=== PATIENT | female | born 1985 | race Caucasian/White ===

== ENCOUNTER 2016-08-26 12:51 | Emergency (ER) | payer MEDICAID, OTHER ==
[2016-08-26 13:11] VITALS: BP 126/81
--- NOTE | 2016-08-26 13:31 | EDM.PDOC ---
ED HPI GI/ABDOMINAL - General Chief Complaint: Abdominal Pain Stated Complaint: ABDOMINAL PAIN Time Seen by Provider: 08/26/16 13:30 Source of Information: Reports: Patient - History of Present Illness INITIAL COMMENTS - FREE TEXT/NARRATIVE: Patient here today with bilateral ear pain, drainage from left ear. She has had a cold for the past few weeks and now having worsening ear pain. She also has alcoholic cirrhosis and is having increased abdominal girth and would like this drained today. - Related Data Allergies/ADRs: Allergies Allergy/AdvReac Type Severity Reaction Status Date / Time No Known Allergies Allergy Verified 08/26/16 13:10 Home Meds: Home Meds Polyethylene Glycol 3350 [MiraLAX] 17 gm PO BID PRN 06/14/16 [History] Spironolactone [Aldactone] 25 mg PO DAILY 30 Days 06/15/16 [Rx] Amoxicillin 875 mg PO BID #20 tab 08/26/16 [Rx] Ciprofloxacin/Dexamethasone [Ciprodex Otic Susp] 7.5 ml EARLF BID #1 bottle 06/13 [Rx] Past Medical History - Past Health History Medical/Surgical History: Denies Medical/Surgical History HEENT History: Reports: Other (see below) Other HEENT History: Pt needs glasses but does not have them Gastrointestinal History: Reports: Cirrhosis, Jaundice Genitourinary History: Reports: UTI, recurrent [employer] History: Reports: , Therapeutic Psychiatric History: Reports: Addiction, Anxiety, Depression Endocrine/Metabolic History: Reports: Diabetes, type II - Past Surgical History GI Surgical History: Reports: Cholecystectomy Female Surgical History: Reports: D&C Musculoskeletal Surgical History: Reports: ORIF, Other (see below) Other Musculoskeletal Surgeries/Procedures:: Right Ankle Social & Family History - Family History Family Medical History: Noncontributory Endocrine/Metabolic: Reports: Diabetes, type II - Tobacco Use Smoking Status *Q: Current Every Day Smoker Years of Tobacco use: 17 Packs/Tins Daily: 0.2 Used Tobacco, but Quit: No Second Hand Smoke Exposure: No - Caffeine Use Caffeine Use: Reports: Soda - Alcohol Use Days Per Week of Alcohol Use: 7 Number of Drinks Per Day: 10 Total Drinks Per Week: 70 - Recreational Drug Use Recreational Drug Use: Yes Drug Use in Last 12 Months: Yes Recreational Drug Type: Reports: Methamphetamine Other Recreational Drug Type: used meth 06/28/16 Recreational Drug Use Frequency: Socially Recreational Drug Last Use: - Living Situation & Occupation Living situation: Reports: single, other (Currently homeless, staying with a friend) Occupation: unemployed ED ROS GENERAL - Review of Systems Review Of Systems: See Below Constitutional: Reports: no symptoms HEENT: Reports: Ear discharge (left), Ear pain, Rhinitis, Sinus problem. Denies : Throat pain Respiratory: Denies: Shortness of Breath, Wheezing, Cough Cardiovascular: Reports: No symptoms GI/Abdominal: Reports: Abdominal pain, Diarrhea (chronic), Other (increased girth, feeling of fullness). Denies: Constipation, Decreased appetite, Hematochezia, Melena, Nausea, Vomiting Musculoskeletal: Reports: no symptoms Skin: Denies: jaundice, pruritis, rash, change in color Neurological: Reports: No Symptoms Psychiatric: Reports: No symptoms ED EXAM, GI/ABD - Physical Exam Exam: See Below Exam Limited By: No limitations General Appearance: alert, WD/WN, no apparent distress Eyes: bilateral: normal appearance (No icterus.) Ears: normal external exam, other (Left canal with bloody, purulent discharge. Unalbe to visualize left TM. Right TM bright red and bulging. ) Throat/Mouth: Normal inspection, Normal oropharynx Respiratory/Chest: no respiratory distress, lungs clear, normal breath sounds Cardiovascular: normal peripheral pulses, regular rate, rhythm GI/Abdominal: normal bowel sounds, distention, other (Firm and distended significantly, ascites.) Neurological: alert, oriented Psychiatric: normal affect, normal mood Skin Exam: Warm, Dry, Intact. No: Jaundice Course - Vital Signs Last Recorded V/S: Last Vital Signs Temp 98.3 F 08/26/16 13:09 Pulse 120 H 08/26/16 13:09 Resp 18 08/26/16 13:09 BP 126/81 08/26/16 13:09 Pulse Ox 95 08/26/16 13:09 - Orders/Labs/Meds Meds: Medications Discontinued Medications Generic Name Dose Route Start Last Admin Trade Name Freq PRN Reason Stop Dose Admin Ibuprofen 400 mg 08/26/16 14:18 08/26/16 14:24 Motrin PO 08/26/16 14:19 400 mg ONETIME ONE Administration - Re-Assessments/Exams Free Text/Narrative Re-Assessment/Exam: Bilateral AOM with TM rupture on the left. Will treat with PO amoxicillin and ciprodex drops. Recommend ibuprofen as needed for the pain. Patient requesting paracentesis because she is "due". She is in no respiratory distress, able to take in full breath. Lungs clear bilaterally and O2 95-97% on room air and per record review this is her normal range. Discussed with Dr Abdul, this is not emergent and we will get her scheduled to have this on outpatient basis. Discussed with Dr Haq/surgery who agrees to see patient on Sunday at 2:30p. 08/26/16 14:15 Departure - Departure Time of Disposition: 14:18 Disposition: Home, Self-Care 01 Condition: good Clinical Impression: Recurrent AOM (acute otitis media) of both ears, Rupture of left tympanic membrane, Ascites due to alcoholic cirrhosis Prescriptions: Amoxicillin 875 mg PO BID #20 tab Ciprofloxacin/Dexamethasone [Ciprodex Otic Susp] 7.5 ml EARLF BID #1 bottle Instructions: Otitis Media, Adult, [id number], Cirrhosis, Ascites, Eardrum Perforation, [id number] Referrals: Debbie Dueñas, DO [Primary Care Provider] - Forms: ED Department Discharge Additional Instructions: Take full course of antibiotic, I recommend probiotic with this. Ear drops to left ear 2x daily for 7 days. Follow-up with Dr Haq at [facility] at 2:30pm for a waiting appointment for your ascites. Please be there 15 minutes early.
[2016-08-26] MEDS ORDERED: Ibuprofen 400 MG Tab PO ONE (14:18)
== END 2016-08-26 15:05 | disposition home or self-care (01) ==
LOC: JD.ED 12:51
DX: H66.93 Otitis media, unspecified, bilateral (principal); H72.92 Unspecified perforation of tympanic membrane, left ear; E11.9 Type 2 diabetes mellitus without complications; F17.210 Nicotine dependence, cigarettes, uncomplicated; Z79.899 Other long term (current) drug therapy
CPT/HCPCS: 99284; A9270; 99283

== ENCOUNTER 2016-08-28 11:55 | Emergency (ER) | payer MEDICAID, OTHER ==
[2016-08-28 12:27] VITALS: BP 120/90
== END 2016-08-28 12:45 | disposition other institution (70) ==
LOC: JD.ED 11:55
DX: Z53.21 Procedure and treatment not carried out due to patient leaving prior to being seen by health care provider (principal)

== ENCOUNTER 2016-08-31 17:26 | Emergency (ER) | payer MEDICAID, OTHER ==
[2016-08-31] MEDS ORDERED: LORazepam 2 MG/ML MDV IVPUSH ONE (17:50)
[2016-08-31] MEDS ORDERED: Sodium Chloride 0.9% 10 ML Syringe FLUSH PRN ×2 (17:51→18:54)
--- NOTE | 2016-08-31 18:45 | EDM.PDOC ---
ED HISTORY OF PRESENT ILLNESS - General Chief Complaint: Respiratory Problem Stated Complaint: Shortness of breath Time Seen by Provider: 08/31/16 17:35 Source of Information: Reports: Patient, Old records, RN notes reviewed History Limitations: Reports: No limitations - History of Present Illness INITIAL COMMENTS - FREE TEXT/NARRATIVE: 30 year old female presents to the ED today with shortness of breath and bilateral hand tingling. The symptoms started this afternoon. She is breathing rapidly and admits to feeling very anxious. She reports a non-productive cough. No fever or chills. She has a known history of alcohol cirrhosis requiring frequent paracentesis. Her last paracentesis was 3 days ago at [facility] with Dr. Haq. The patient says her abdomen feels large and she is concerned that the site may be infected. She admits to drinking whiskey today. She is unsure how much she drank. She says she's tried to quit in the past but it didn't work. History is difficult as patient is very anxious and appears to be intoxicated. - Related Data Allergies/ADRs: Allergies Allergy/AdvReac Type Severity Reaction Status Date / Time No Known Allergies Allergy Verified 08/28/16 12:21 Home Meds: Home Meds Polyethylene Glycol 3350 [MiraLAX] 17 gm PO BID PRN 06/14/16 [History] Spironolactone [Aldactone] 25 mg PO DAILY 30 Days 06/15/16 [Rx] Amoxicillin 875 mg PO BID #20 tab 08/26/16 [Rx] Ciprofloxacin/Dexamethasone [Ciprodex Otic Susp] 7.5 ml EARLF BID #1 bottle 06/13 [Rx] Past Medical History - Past Health History Medical/Surgical History: Denies Medical/Surgical History HEENT History: Reports: Other (see below) Other HEENT History: Pt needs glasses but does not have them Gastrointestinal History: Reports: Cirrhosis, Jaundice Genitourinary History: Reports: UTI, recurrent [employer] History: Reports: , Therapeutic Psychiatric History: Reports: Addiction, Anxiety, Depression Endocrine/Metabolic History: Reports: Diabetes, type II - Past Surgical History GI Surgical History: Reports: Cholecystectomy Female Surgical History: Reports: D&C Musculoskeletal Surgical History: Reports: ORIF, Other (see below) Other Musculoskeletal Surgeries/Procedures:: Right Ankle Social & Family History - Family History Family Medical History: Noncontributory Endocrine/Metabolic: Reports: Diabetes, type II - Tobacco Use Smoking Status *Q: Current Every Day Smoker Years of Tobacco use: 10 Packs/Tins Daily: 0.5 Used Tobacco, but Quit: No Second Hand Smoke Exposure: No - Caffeine Use Caffeine Use: Reports: Coffee, Energy drinks, Soda - Alcohol Use Days Per Week of Alcohol Use: 7 Number of Drinks Per Day: 10 Total Drinks Per Week: 70 - Recreational Drug Use Recreational Drug Use: No Drug Use in Last 12 Months: Yes Recreational Drug Type: Reports: Methamphetamine Other Recreational Drug Type: used meth 06/28/16 Recreational Drug Use Frequency: Socially Recreational Drug Last Use: - Living Situation & Occupation Living situation: Reports: single, other (Currently homeless, staying with a friend) Occupation: unemployed ED ROS GENERAL - Review of Systems Review Of Systems: See Below Constitutional: Reports: no symptoms. Denies: fever, chills, diaphoresis Respiratory: Reports: Shortness of Breath, Cough. Denies: Wheezing, Sputum GI/Abdominal: Reports: Abdominal pain, Nausea, Other (ascites). Denies: Diarrhea, Vomiting Neurological: Reports: Other (intoxication) Psychiatric: Reports: Anxiety ED EXAM, GENERAL - Physical Exam Exam: See Below Exam Limited By: No limitations General Appearance: alert, WD/WN, anxious, moderate distress Throat/Mouth: Normal inspection, Normal oropharynx Respiratory/Chest: lungs clear, normal breath sounds, no accessory muscle use, chest non-tender, other (tachypnic, oxygen saturation 100% on room air ). No: crackles, rales, rhonchi, wheezing, stridor Cardiovascular: normal peripheral pulses, no murmur, tachycardia GI/Abdominal: normal bowel sounds, soft, hepatomegaly, other (ascites). No: distended, guarding, rigid, rebound Neurological: alert, oriented, normal cognition Skin Exam: Warm, Dry, Intact Course - Vital Signs Last Recorded V/S: Last Vital Signs Temp 97.8 F 08/31/16 17:30 Pulse 147 H 08/31/16 17:30 Resp 24 H 08/31/16 17:30 BP 115/73 08/31/16 17:30 Pulse Ox 98 08/31/16 17:30 - Orders/Labs/Meds Orders: Active Orders 24 hr Category Date Time Status Cardiac Monitoring [RC] . DIRECTED Care 08/31/16 17:50 Active Peripheral IV Care [RC] . DIRECTED Care 08/31/16 17:51 Active Sodium Chloride 0.9% [Normal Saline] 100 ml Med 08/31/16 19:00 Active IV ASDIRECTED Sodium Chloride 0.9% [Saline Flush] Med 08/31/16 17:51 Active 10 ml FLUSH ASDIRECTED PRN Sodium Chloride 0.9% [Saline Flush] Med 08/31/16 18:54 Active 10 ml FLUSH ONETIME PRN Peripheral IV Insertion Adult [OM.PC] Stat Oth 08/31/16 17:51 Ordered Medication Orders Sodium Chloride (Normal Saline) 100 mls @ 65 mls/hr IV ASDIRECTED BALDO Last Admin: 08/31/16 18:57 Dose: 65 mls/hr Sodium Chloride (Saline Flush) 10 ml FLUSH ASDIRECTED PRN PRN Reason: Keep Vein Open Last Admin: 08/31/16 18:03 Dose: 10 ml Sodium Chloride (Saline Flush) 10 ml FLUSH ONETIME PRN PRN Reason: IV FLUSH Last Admin: 08/31/16 18:57 Dose: 10 ml Labs: Laboratory Tests 08/31/16 08/31/16 08/31/16 Range/Units 17:48 17:48 17:48 WBC 16.20 H (3.98-10.04) K/mm3 RBC 4.42 (3.98-5.22) M/mm3 Hgb 14.1 (11.2-15.7) gm/L Hct 41.5 (34.1-44.9) % MCV 93.9 (79.4-94.8) fl MCH 31.9 (25.6-32.2) pg MCHC 34.0 (32.2-35.5) g/dl RDW Std Deviation 60.9 H (36.4-46.3) fL Plt Count 417 H (182-369) K/mm3 MPV 8.7 L (9.4-12.3) fl Neut % (Auto) 73.0 H (34.0-71.1) % Lymph % (Auto) 18.5 L (19.3-51.7) % [place] % (Auto) 7.2 (4.7-12.5) % Eos % (Auto) 0.4 L (0.7-5.8) Baso % (Auto) 0.6 (0.1-1.2) % Neut # (Auto) 11.83 H (1.56-6.13) K/mm3 Lymph # (Auto) 2.99 (1.18-3.74) K/mm3 [place] # (Auto) 1.17 H (0.24-0.36) K/mm3 Eos # (Auto) 0.07 (0.04-0.36) K/mm3 Baso # (Auto) 0.09 H (0.01-0.08) K/mm3 D-Dimer, Quantitative 8.64 H (0.19-0.59) mg/L Sodium 136 (136-145) mEq/L Potassium 4.0 (3.5-5.1) mEq/L Chloride 100 (98-107) mEq/L Carbon Dioxide 26 (21-32) mEq/L Anion Gap 14.0 (5-15) BUN 7 (7-18) mg/dL Creatinine 0.8 (0.55-1.02) mg/dL Est Cr Clr Drug Dosing 83.51 mL/min Estimated GFR (MDRD) > 60 (>60) mL/min BUN/Creatinine Ratio 8.8 L (14-18) Glucose 113 H (74-106) mg/dL Calcium 7.4 L (8.5-10.1) mg/dL Total Bilirubin 1.2 H (0.2-1.0) mg/dL AST 355 H (15-37) U/L ALT 79 H (14-59) U/L Alkaline Phosphatase 571 H (46-116) U/L Total Protein 7.0 (6.4-8.2) g/dl Albumin 2.1 L (3.4-5.0) g/dl Globulin 4.9 gm/dL Albumin/Globulin Ratio 0.4 L (1-2) HCG, Qual (NEGATIVE) Ethyl Alcohol 0.18 (0.00) gm% 08/31/16 Range/Units 18:00 WBC (3.98-10.04) K/mm3 RBC (3.98-5.22) M/mm3 Hgb (11.2-15.7) gm/L Hct (34.1-44.9) % MCV (79.4-94.8) fl MCH (25.6-32.2) pg MCHC (32.2-35.5) g/dl RDW Std Deviation (36.4-46.3) fL Plt Count (182-369) K/mm3 MPV (9.4-12.3) fl Neut % (Auto) (34.0-71.1) % Lymph % (Auto) (19.3-51.7) % [place] % (Auto) (4.7-12.5) % Eos % (Auto) (0.7-5.8) Baso % (Auto) (0.1-1.2) % Neut # (Auto) (1.56-6.13) K/mm3 Lymph # (Auto) (1.18-3.74) K/mm3 [place] # (Auto) (0.24-0.36) K/mm3 Eos # (Auto) (0.04-0.36) K/mm3 Baso # (Auto) (0.01-0.08) K/mm3 D-Dimer, Quantitative (0.19-0.59) mg/L Sodium (136-145) mEq/L Potassium (3.5-5.1) mEq/L Chloride (98-107) mEq/L Carbon Dioxide (21-32) mEq/L Anion Gap (5-15) BUN (7-18) mg/dL Creatinine (0.55-1.02) mg/dL Est Cr Clr Drug Dosing mL/min Estimated GFR (MDRD) (>60) mL/min BUN/Creatinine Ratio (14-18) Glucose (74-106) mg/dL Calcium (8.5-10.1) mg/dL Total Bilirubin (0.2-1.0) mg/dL AST (15-37) U/L ALT (14-59) U/L Alkaline Phosphatase (46-116) U/L Total Protein (6.4-8.2) g/dl Albumin (3.4-5.0) g/dl Globulin gm/dL Albumin/Globulin Ratio (1-2) HCG, Qual Negative (NEGATIVE) Ethyl Alcohol (0.00) gm% Meds: Medications Generic Name Dose Route Start Last Admin Trade Name Freq PRN Reason Stop Dose Admin Sodium Chloride 100 mls @ 65 mls/hr 08/31/16 19:00 08/31/16 18:57 Normal Saline IV 65 mls/hr ASDIRECTED BALDO Administration Sodium Chloride 10 ml 08/31/16 17:51 08/31/16 18:03 Saline Flush FLUSH 10 ml ASDIRECTED PRN Administration Keep Vein Open Sodium Chloride 10 ml 08/31/16 18:54 08/31/16 18:57 Saline Flush FLUSH 10 ml ONETIME PRN Administration IV FLUSH Discontinued Medications Generic Name Dose Route Start Last Admin Trade Name Darron PRN Reason Stop Dose Admin Iopamidol 100 ml 08/31/16 18:54 08/31/16 18:57 Isovue-370 (76%) IVPUSH 08/31/16 18:55 100 ml ONETIME ONE Administration Lorazepam 1 mg 08/31/16 17:50 08/31/16 18:00 Ativan IVPUSH 08/31/16 17:51 1 mg ONETIME ONE Administration - Re-Assessments/Exams Free Text/Narrative Re-Assessment/Exam: Patient was very anxious and hyperventilating on arrival which explains her hand spasms. She was treated with 1mg IV Ativan. CBC reveals elevated WBC of 16,000. This could be related to her ear infection. However, cannot rule out intraabdominal infection. CMP reveals elevated liver enzymes and low albumin as expected. ETOH is 0.18. Hcg is negative. D-dimer is elevated at 8.6. CT angio of chest ordered as well as abdomen/pelvis. CTs read by Dr. Correa. Abdomen pelvis impression: 1. Diffuse abnormal enhancement of liver presumably from cirrhosis. Findings are stable from prior exam. 2. Ascites is seen which has slightly diminished from previous exam 3. Subcutaneous edema and subcutaneous fluid within the right side of the abdomen which has increased from prior exam. 4. No additinoal abnormality is appreciated. CT angio chest impression: 1. No findings of pulmonary embolism 2. No additional abnormality is appreciated The patient slept after receiving the Ativan. However her heart rate continues to be elevated in the 120-130s. Her BP is stable in the 110s systolic. I discussed her vitals, laboratory, and CT findings with ED Physician Dr. Abdul. He recommended discussing with Dr. Victoria Haq since she performed a paracentesis 3 days ago. I spoke to Dr. Haq. She recommended hospitalist consult due to elevated WBC and tachycardia. In the clinic 3 days ago, Dr. Haq reported that the patient had a heart rate in the 90s after her paracentesis. I discussed these recommendations with Dr. Abdul who agrees that the patient would benefit from an observation admission for IV fluids and monitoring. I discussed these recommendations and diagnostic findings with the patient. I recommended that we admit her to the hospital. The patient declines admission. I explained the risks, including worsening shortness of breath, tachycardia, possible intra-abdominal infection. She is on antibiotics for her ear infection which could explain her elevated WBC, however early sepsis cannot be ruled out. The patient states understanding. She continues to decline admission. We discussed her alcoholism and I encouraged her to seek treatment. She understands that she is continuing to harm herself and that her condition is guarded. I then discussed the patient's refusal to be admitted with Dr. Abdul. He recommends 500ml IV fluid bolus prior to discharge as her tachycardia could likely be related to intravascular volume depletion. Departure - Departure Time of Disposition: 20:31 Disposition: Home, Self-Care 01 Condition: fair Clinical Impression: Alcoholic hepatitis with ascites, Shortness of breath Alcohol intoxication Qualifiers: Complication of substance-induced condition: uncomplicated Qualified Code(s): F10.120 - Alcohol abuse with intoxication, uncomplicated Forms: ED Department Discharge Additional Instructions: Follow-up with Dr. Dueñas in 2-3 days for follow-up. See Dr. Haq or Dr. Kessler as needed for your ascites. Return to ER if your symptoms worsen We highly recommend that you stop drinking No driving today due to sedating medications given in the ED. - My Orders Last 24 Hours: My Active Orders 08/31/16 17:50 Cardiac Monitoring [RC] . DIRECTED 08/31/16 17:51 Peripheral IV Care [RC] . DIRECTED Sodium Chloride 0.9% [Saline Flush] 10 ml FLUSH ASDIRECTED PRN Peripheral IV Insertion Adult [OM.PC] Stat 08/31/16 18:54 Sodium Chloride 0.9% [Saline Flush] 10 ml FLUSH ONETIME PRN 08/31/16 19:00 Sodium Chloride 0.9% [Normal Saline] 100 ml IV ASDIRECTED - Assessment/Plan Last 24 Hours: My Active Orders 08/31/16 17:50 Cardiac Monitoring [RC] . DIRECTED 08/31/16 17:51 Peripheral IV Care [RC] . DIRECTED Sodium Chloride 0.9% [Saline Flush] 10 ml FLUSH ASDIRECTED PRN Peripheral IV Insertion Adult [OM.PC] Stat 08/31/16 18:54 Sodium Chloride 0.9% [Saline Flush] 10 ml FLUSH ONETIME PRN 08/31/16 19:00 Sodium Chloride 0.9% [Normal Saline] 100 ml IV ASDIRECTED
[2016-08-31] MEDS ORDERED: Iopamidol 755 Mg/ML 100 ML Bottle IVPUSH ONE (18:54)
[2016-08-31] MEDS ORDERED: Sodium Chloride 0.9% 100 ML IV SCH (19:00)
--- NOTE | 2016-08-31 19:38 | CT ---
CT abdomen and pelvis Technique: Multiple axial sections were obtained from above the dome of the diaphragm inferiorly through the pubic symphysis. Intravenous contrast was utilized. No oral contrast has been given. Lack of oral contrast diminishes evaluation of the bowel and processes around the bowel. Comparison: Previous CT exam of 06/13/16. Findings: Diffusely abnormal enhancement is seen within the liver. Spleen size is normal. Moderate ascites is seen which has mildly diminished from previous exam. Diffuse subcutaneous edema and fluid is seen within the right side of the abdomen which is more prominent than on previous exam. Adrenal glands show no nodule. Surgical clips are seen from prior cholecystectomy. Kidneys show contrast enhancement without hydronephrosis or mass. Pancreas appears within normal limits. Aorta shows no aneurysmal dilatation. No retroperitoneal adenopathy or mesenteric abnormalities are seen. No pelvic mass or adenopathy is seen. Delayed images shows contrast within the distal ureters and within the bladder. Bone window settings were reviewed which appears within normal limits for the patient's age. Impression: 1. Diffusely abnormal enhancement of the liver presumably from cirrhosis. Findings are stable from prior exam. 2. Ascites is seen which has slightly diminished from previous exam. 3. Subcutaneous edema and subcutaneous fluid within the right side of the abdomen which has increased from prior exam. 4. No additional abnormality is appreciated on CT study of the abdomen and pelvis. Study somewhat diminished in details due to lack of oral contrast. Diagnostic code #3
--- NOTE | 2016-08-31 19:38 | CT ---
CT chest Technique: Multiple axial sections through the chest were obtained. Study was performed as a CT pulmonary angiogram protocol. Comparison: No previous CT study is available. Findings: Pulmonary arteries are moderately well-opacified. No filling defects are seen to indicate pulmonary embolism. Mediastinum and hilar regions show no adenopathy or mass. No pericardial thickening is seen. No pleural effusions are seen. Lungs are clear. Bone window settings were reviewed which appear within normal limits for the patient's age. Impression: 1. No findings of pulmonary embolism. 2. No additional abnormality is appreciated on CT study of the chest. Diagnostic code #1
[2016-08-31] MEDS ORDERED: Sodium Chloride 0.9% 500 ML IV ONE (20:32)
[2016-08-31] MEDS ORDERED: Sodium Chloride 0.9% 500 ML ONE (20:36)
[2016-08-31] MEDS ORDERED: Sodium Chloride 0.9% 500 ML IV SCH (20:45)
[2016-08-31 21:21] VITALS: BP 122/68
== END 2016-08-31 21:21 | disposition home or self-care (01) ==
LOC: JD.ED 17:26
DX: K70.31 Alcoholic cirrhosis of liver with ascites (principal); B19.9 Unspecified viral hepatitis without hepatic coma; F10.229 Alcohol dependence with intoxication, unspecified; Y90.0 Blood alcohol level of less than 20 mg/100 ml; R06.4 Hyperventilation; R00.0 Tachycardia, unspecified; F41.9 Anxiety disorder, unspecified; H66.90 Otitis media, unspecified, unspecified ear; D72.829 Elevated white blood cell count, unspecified; F32.9 Major depressive disorder, single episode, unspecified; E11.9 Type 2 diabetes mellitus without complications; F17.200 Nicotine dependence, unspecified, uncomplicated; F15.90 Other stimulant use, unspecified, uncomplicated
CPT/HCPCS: 36415; 71275; 74177; 80053; 84703; 85025; 85379; 96374; 99285; G0480; J2060; J7030; J7040; J7050; Q9967; 51798; 99284

== ENCOUNTER 2016-09-01 15:22 | Emergency (ER) | payer MEDICAID, OTHER ==
[2016-09-01 15:32] VITALS: BP 111/70
[2016-09-01] MEDS ORDERED: Ondansetron 4 MG/2 ML SDV IVPUSH ONE (15:46)
[2016-09-01] MEDS ORDERED: Sodium Chloride 0.9% 10 ML Syringe FLUSH PRN (15:46)
[2016-09-01] MEDS ORDERED: HYDROmorphone 0.5 MG/0.5 ML Syringe IVPUSH ONE ×2 (15:49→18:28)
[2016-09-01] MEDS ORDERED: Sodium Chloride 0.9% 1,000 ML IV SCH (16:00)
--- NOTE | 2016-09-01 16:58 | EDM.PDOC ---
ED HPI GI/ABDOMINAL - General Chief Complaint: Abdominal Pain Stated Complaint: NOT BETTER SWOLLEN ABDOMEN AND SOB Time Seen by Provider: 09/01/16 15:36 Source of Information: Reports: Patient History Limitations: Reports: No limitations - History of Present Illness INITIAL COMMENTS - FREE TEXT/NARRATIVE: The patient presents with abdominal pain, abdominal distension, and shortness of breath. 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 She has ascities and she gets regular paracentesis. She last had paracentesis on the . She was here yesterday for the same symptoms and she had a complete work up to include CT of her chest that ruled out a PE, CT of her abdomen and pelvis that showed the ascities. Her WBC was elevated and she was offered admission but she refused. Her blood alcohol yesterday was 0.18. She has redness to the abdomen mostly on the right. She has left ear pain and an otitis media for which she is on antibiotics. She has chills but no fever here. She has no chest pain but she is short of breath. She is dizzy from the ear infection and she has fallen a few times. Timing/Duration: Reports: Week(s): Location: generalized Quality: Reports: other (sharp) Severity: moderate Context: Denies: sick contact, bad/questionable food, out of country travel, recent surgery, recent trauma, lifting, activity/exercise Associated Symptoms (-Female): Reports: fever/chills, nausea/vomiting. 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 Psychiatric History: Reports: Addiction, Anxiety, Depression Endocrine/Metabolic History: Reports: Diabetes, type II - Past Surgical History GI Surgical History: Reports: Cholecystectomy Female Surgical History: Reports: D&C Musculoskeletal Surgical History: Reports: ORIF, Other (see below) Other Musculoskeletal Surgeries/Procedures:: Right Ankle Social & Family History - Family History Family Medical History: Noncontributory Endocrine/Metabolic: Reports: Diabetes, type II - Tobacco Use Smoking Status *Q: Current Every Day Smoker Years of Tobacco use: 17 Packs/Tins Daily: 0.5 Used Tobacco, but Quit: No Second Hand Smoke Exposure: No - Caffeine Use Caffeine Use: Reports: Coffee, Energy drinks, Soda, Tea - Alcohol Use Days Per Week of Alcohol Use: 7 Number of Drinks Per Day: 10 Total Drinks Per Week: 70 - Recreational Drug Use Recreational Drug Use: Yes Drug Use in Last 12 Months: Yes Recreational Drug Type: Reports: Methamphetamine Other Recreational Drug Type: no drugs since Recreational Drug Use Frequency: Socially Recreational Drug Last Use: - Living Situation & Occupation Living situation: Reports: single, other (Currently homeless, staying with a friend) Occupation: unemployed ED ROS GENERAL - Review of Systems Review Of Systems: See Below Constitutional: Reports: chills. Denies: fever HEENT: Reports: No symptoms Respiratory: Reports: Shortness of Breath. Denies: Cough Cardiovascular: Reports: No symptoms Endocrine: Reports: no symptoms GI/Abdominal: Reports: Abdominal pain, Nausea : Reports: no symptoms Musculoskeletal: Reports: no symptoms Skin: Reports: no symptoms Neurological: Reports: No Symptoms ED EXAM, GI/ABD - Physical Exam Exam: See Below Exam Limited By: No limitations General Appearance: alert, no apparent distress Ears: normal external exam Nose: normal inspection Head: atraumatic, normocephalic Neck: normal inspection Respiratory/Chest: no respiratory distress, lungs clear, normal breath sounds Cardiovascular: no edema, no murmur, tachycardia GI/Abdominal: soft, distention, other (Erythema of the abdomen and pain upon palpation) Back Exam: normal inspection Extremities: other (ecchymosis and pain upon palpation to both hips) Course - Vital Signs Last Recorded V/S: Last Vital Signs Temp 98.6 F 09/01/16 15:31 Pulse 133 H 09/01/16 15:31 Resp 22 H 09/01/16 15:31 BP 111/70 09/01/16 15:31 Pulse Ox 99 09/01/16 15:31 - Orders/Labs/Meds Orders: Active Orders 24 hr Category Date Time Status Peripheral IV Care [RC] . DIRECTED Care 09/01/16 15:47 Active Head wo Cont [CT] Stat Exams 09/01/16 15:47 Taken Neck Soft Tissue [CR] Stat Exams 09/01/16 17:22 Taken CULTURE BLOOD [BC] Stat Lab 09/01/16 16:10 Received CULTURE BLOOD [BC] Stat Lab 09/01/16 16:24 Received Sodium Chloride 0.9% [Normal Saline] 1,000 ml Med 09/01/16 16:00 Active IV ASDIRECTED Sodium Chloride 0.9% [Normal Saline] 1,000 ml Med 09/01/16 18:20 Active IV ONETIME Sodium Chloride 0.9% [Normal Saline] 1,000 ml Med 09/01/16 18:26 Active IV ONETIME Sodium Chloride 0.9% [Saline Flush] Med 09/01/16 15:46 Active 10 ml FLUSH ASDIRECTED PRN Blood Culture x2 Reflex Set [OM.PC] Stat Oth 09/01/16 15:46 Ordered ED Antiemetic Medication Reflex [OM.PC] Stat Oth 09/01/16 15:46 Ordered Peripheral IV Insertion Adult [OM.PC] Stat Oth 09/01/16 15:46 Ordered Medication Orders Sodium Chloride (Normal Saline) 1,000 mls @ 125 mls/hr IV ASDIRECTED BALDO Last Admin: 09/01/16 15:57 Dose: 125 mls/hr Sodium Chloride (Normal Saline) 1,000 mls @ 1,000 mls/hr IV ONETIME ONE Stop: 09/01/16 19:19 Sodium Chloride (Normal Saline) 1,000 mls @ 1,000 mls/hr IV ONETIME ONE Stop: 09/01/16 19:25 Sodium Chloride (Saline Flush) 10 ml FLUSH ASDIRECTED PRN PRN Reason: Keep Vein Open Last Admin: 09/01/16 15:57 Dose: 10 ml Labs: Laboratory Tests 09/01/16 09/01/16 09/01/16 Range/Units 15:40 15:40 15:40 WBC 16.94 H (3.98-10.04) K/mm3 RBC 4.04 (3.98-5.22) M/mm3 Hgb 12.9 (11.2-15.7) gm/L Hct 38.2 (34.1-44.9) % MCV 94.6 (79.4-94.8) fl MCH 31.9 (25.6-32.2) pg MCHC 33.8 (32.2-35.5) g/dl RDW Std Deviation 61.5 H (36.4-46.3) fL Plt Count 385 H (182-369) K/mm3 MPV 9.0 L (9.4-12.3) fl Neut % (Auto) 75.4 H (34.0-71.1) % Lymph % (Auto) 15.6 L (19.3-51.7) % [place] % (Auto) 7.6 (4.7-12.5) % Eos % (Auto) 0.7 (0.7-5.8) Baso % (Auto) 0.5 (0.1-1.2) % Neut # (Auto) 12.76 H (1.56-6.13) K/mm3 Lymph # (Auto) 2.65 (1.18-3.74) K/mm3 [place] # (Auto) 1.28 H (0.24-0.36) K/mm3 Eos # (Auto) 0.12 (0.04-0.36) K/mm3 Baso # (Auto) 0.09 H (0.01-0.08) K/mm3 Sodium 136 (136-145) mEq/L Potassium 3.5 (3.5-5.1) mEq/L Chloride 99 (98-107) mEq/L Carbon Dioxide 27 (21-32) mEq/L Anion Gap 13.5 (5-15) BUN 9 (7-18) mg/dL Creatinine 1.0 (0.55-1.02) mg/dL Est Cr Clr Drug Dosing 63.88 mL/min Estimated GFR (MDRD) > 60 (>60) mL/min BUN/Creatinine Ratio 9.0 L (14-18) Glucose 147 H (74-106) mg/dL Lactic Acid (0.4-2.0) mmol/L Calcium 7.5 L (8.5-10.1) mg/dL Total Bilirubin 0.9 (0.2-1.0) mg/dL AST 290 H (15-37) U/L ALT 69 H (14-59) U/L Alkaline Phosphatase 598 H (46-116) U/L Total Protein 6.5 (6.4-8.2) g/dl Albumin 2.0 L (3.4-5.0) g/dl Globulin 4.5 gm/dL Albumin/Globulin Ratio 0.4 L (1-2) Lipase 574 H (73-393) U/L Urine Color (Yellow) Urine Appearance (Clear) Urine pH (5.0-8.0) Ur Specific [place] (1.005-1.030) Urine Protein (Negative) Urine Glucose (UA) (Negative) Urine Ketones (Negative) Urine Occult Blood (Negative) Urine Nitrite (Negative) Urine Bilirubin (Negative) Urine Urobilinogen (0.2-1.0) Ur Leukocyte Esterase (Negative) Urine RBC (0-5) /hpf Urine WBC (0-5) /hpf Ur Epithelial Cells (0-5) /hpf Urine Bacteria (FEW) /hpf Hyaline Casts (0-5) /lpf Urine Mucus (FEW) /hpf Ethyl Alcohol 0.21 (0.00) gm% 09/01/16 09/01/16 Range/Units 16:24 16:35 WBC (3.98-10.04) K/mm3 RBC (3.98-5.22) M/mm3 Hgb (11.2-15.7) gm/L Hct (34.1-44.9) % MCV (79.4-94.8) fl MCH (25.6-32.2) pg MCHC (32.2-35.5) g/dl RDW Std Deviation (36.4-46.3) fL Plt Count (182-369) K/mm3 MPV (9.4-12.3) fl Neut % (Auto) (34.0-71.1) % Lymph % (Auto) (19.3-51.7) % [place] % (Auto) (4.7-12.5) % Eos % (Auto) (0.7-5.8) Baso % (Auto) (0.1-1.2) % Neut # (Auto) (1.56-6.13) K/mm3 Lymph # (Auto) (1.18-3.74) K/mm3 [place] # (Auto) (0.24-0.36) K/mm3 Eos # (Auto) (0.04-0.36) K/mm3 Baso # (Auto) (0.01-0.08) K/mm3 Sodium (136-145) mEq/L Potassium (3.5-5.1) mEq/L Chloride (98-107) mEq/L Carbon Dioxide (21-32) mEq/L Anion Gap (5-15) BUN (7-18) mg/dL Creatinine (0.55-1.02) mg/dL Est Cr Clr Drug Dosing mL/min Estimated GFR (MDRD) (>60) mL/min BUN/Creatinine Ratio (14-18) Glucose (74-106) mg/dL Lactic Acid 2.7 H (0.4-2.0) mmol/L Calcium (8.5-10.1) mg/dL Total Bilirubin (0.2-1.0) mg/dL AST (15-37) U/L ALT (14-59) U/L Alkaline Phosphatase (46-116) U/L Total Protein (6.4-8.2) g/dl Albumin (3.4-5.0) g/dl Globulin gm/dL Albumin/Globulin Ratio (1-2) Lipase (73-393) U/L Urine Color Dark yellow (Yellow) Urine Appearance Slt cloudy H (Clear) Urine pH 6.0 (5.0-8.0) Ur Specific [place] 1.025 (1.005-1.030) Urine Protein 2+ H (Negative) Urine Glucose (UA) Negative (Negative) Urine Ketones 1+ H (Negative) Urine Occult Blood Negative (Negative) Urine Nitrite Negative (Negative) Urine Bilirubin 2+ H (Negative) Urine Urobilinogen 1.0 (0.2-1.0) Ur Leukocyte Esterase Negative (Negative) Urine RBC 0-5 (0-5) /hpf Urine WBC 0-5 (0-5) /hpf Ur Epithelial Cells 5-10 H (0-5) /hpf Urine Bacteria Few (FEW) /hpf Hyaline Casts 0-5 (0-5) /lpf Urine Mucus Moderate H (FEW) /hpf Ethyl Alcohol (0.00) gm% Meds: Medications Generic Name Dose Route Start Last Admin Trade Name Freq PRN Reason Stop Dose Admin Sodium Chloride 1,000 mls @ 125 mls/hr 09/01/16 16:00 09/01/16 15:57 Normal Saline IV 125 mls/hr ASDIRECTED BALDO Administration Sodium Chloride 1,000 mls @ 1,000 mls/hr 09/01/16 18:20 Normal Saline IV 09/01/16 19:19 ONETIME ONE Sodium Chloride 1,000 mls @ 1,000 mls/hr 09/01/16 18:26 Normal Saline IV 09/01/16 19:25 ONETIME ONE Sodium Chloride 10 ml 09/01/16 15:46 09/01/16 15:57 Saline Flush FLUSH 10 ml ASDIRECTED PRN Administration Keep Vein Open Discontinued Medications Generic Name Dose Route Start Last Admin Trade Name Freq PRN Reason Stop Dose Admin Hydromorphone HCl 0.5 mg 09/01/16 15:49 09/01/16 15:57 Dilaudid IVPUSH 09/01/16 15:50 0.5 mg ONETIME ONE Administration Hydromorphone HCl 0.5 mg 09/01/16 18:28 Dilaudid IVPUSH 09/01/16 18:29 ONETIME ONE Vancomycin HCl 1 gm/ Sodium 250 mls @ 250 mls/hr 09/01/16 17:23 09/01/16 17: 41 Chloride IV 09/01/16 18:22 250 mls/hr ONETIME ONE Administration Methylprednisolone Sodium Succinate 125 mg 09/01/16 18:10 09/01/16 18:23 Solu-Medrol IVPUSH 09/01/16 18:11 125 mg ONETIME ONE Administration Ondansetron HCl 4 mg 09/01/16 15:46 09/01/16 15:57 Zofran IVPUSH 09/01/16 15:47 4 mg ONETIME ONE Administration - Re-Assessments/Exams Free Text/Narrative Re-Assessment/Exam: 09/01/16 18:31 I ordered an IV NS at 125mL/hr, CT of her head, labs, blood cultures, and UA. Her WBC is elevated at 16.94. Her Hgb was elevated at 12.9. Her platelet count is normal. Her glucose is elevated at 147. Her creatinine is elevated at 1. Her lactic acid is elevated at 2.7. Her AST is elevated at 290. Her ALT is elevated at 69. Her alk phos is elevated at 598. Her lipase is 574. Her ETOH is elevated at 0.21. The CT of her head shows severe bilateral mastoiditis versus effusion with partial right otitis and interna. She had a hoarse voice for a few days and she says it is hard to breath in at times. She has an oxygen saturation of 100% . I did a soft tissue of her neck and she has steeple sign. She has croup. I ordered blood cultures and I started vancomycin 1gram IV for the cellulitis, mastoiditis and otitis media. She also has pancreatitis, sepsis, croup, ascitis , liver failure and ETOH intoxication. I ordered some solu-medrol 125mg IV for the croup and stridor. I also ordered a total of 2L of fluid. She had more pain so I ordered some dilaudid. I called our hospitalist about admitting her and he was not comfortable admitting her here. I called [facility] and talked with Dr Simon and she accepted the patient. She will be going by ambulance. Departure - Departure Time of Disposition: 18:40 Disposition: DC/Tfer to [facility] 02 Condition: serious Clinical Impression: Ascites due to alcoholic cirrhosis, Rupture of left tympanic membrane, Recurrent AOM (acute otitis media) of both ears, Shortness of breath, Alcoholism , Croup Sepsis Qualifiers: Sepsis type: sepsis due to unspecified organism Qualified Code(s): A41.9 - Sepsis, unspecified organism Abdominal pain Qualifiers: Abdominal location: generalized Qualified Code(s): R10.84 - Generalized abdominal pain Cellulitis Qualifiers: Site of cellulitis: trunk Site of cellulitis of trunk: abdominal wall Qualified Code(s): L03.311 - Cellulitis of abdominal wall Mastoiditis Qualifiers: Laterality: bilateral Qualified Code(s): H70.93 - Unspecified mastoiditis, bilateral Pancreatitis Qualifiers: Chronicity: acute Pancreatitis type: alcohol induced Acute pancreatitis complication: no infection or necrosis Qualified Code(s): K85.20 - Alcohol induced acute pancreatitis without necrosis or infection Alcohol intoxication Qualifiers: Complication of substance-induced condition: uncomplicated Qualified Code(s): F10.120 - Alcohol abuse with intoxication, uncomplicated Forms: ED Department Discharge - My Orders Last 24 Hours: My Active Orders 09/01/16 15:46 Sodium Chloride 0.9% [Saline Flush] 10 ml FLUSH ASDIRECTED PRN Blood Culture x2 Reflex Set [OM.PC] Stat ED Antiemetic Medication Reflex [OM.PC] Stat Peripheral IV Insertion Adult [OM.PC] Stat 09/01/16 15:47 Peripheral IV Care [RC] . DIRECTED Head wo Cont [CT] Stat 09/01/16 16:00 Sodium Chloride 0.9% [Normal Saline] 1,000 ml IV ASDIRECTED 09/01/16 16:10 CULTURE BLOOD [BC] Stat 09/01/16 16:24 CULTURE BLOOD [BC] Stat 09/01/16 17:22 Neck Soft Tissue [CR] Stat 09/01/16 18:20 Sodium Chloride 0.9% [Normal Saline] 1,000 ml IV ONETIME 09/01/16 18:26 Sodium Chloride 0.9% [Normal Saline] 1,000 ml IV ONETIME - Assessment/Plan Last 24 Hours: My Active Orders 09/01/16 15:46 Sodium Chloride 0.9% [Saline Flush] 10 ml FLUSH ASDIRECTED PRN Blood Culture x2 Reflex Set [OM.PC] Stat ED Antiemetic Medication Reflex [OM.PC] Stat Peripheral IV Insertion Adult [OM.PC] Stat 09/01/16 15:47 Peripheral IV Care [RC] . DIRECTED Head wo Cont [CT] Stat 09/01/16 16:00 Sodium Chloride 0.9% [Normal Saline] 1,000 ml IV ASDIRECTED 09/01/16 16:10 CULTURE BLOOD [BC] Stat 09/01/16 16:24 CULTURE BLOOD [BC] Stat 09/01/16 17:22 Neck Soft Tissue [CR] Stat 09/01/16 18:20 Sodium Chloride 0.9% [Normal Saline] 1,000 ml IV ONETIME 09/01/16 18:26 Sodium Chloride 0.9% [Normal Saline] 1,000 ml IV ONETIME
[2016-09-01] MEDS ORDERED: methylPREDNISolone Sodium Succinate 125 MG/2 ML SDV IVPUSH ONE (18:10)
[2016-09-01] MEDS ORDERED: Sodium Chloride 0.9% 1,000 ML IV ONE ×2 (18:20→18:26)
--- NOTE | 2016-09-03 16:21 | CT ---
Head CT Technique: Multiple axial sections through the brain were obtained. Intravenous contrast was not utilized. Comparison: No previous intracranial imaging. Findings: Ventricles along with basal cisterns and sulci over the convexities are within normal limits for the patient's age. No abnormal parenchymal densities are seen. No evidence of intracranial hemorrhage. No midline shift or mass effect is seen. Bone window settings were reviewed which show mucosal thickening and small air-fluid levels within both maxillary sinuses. Mucosal thickening also noted within the sphenoid and within portions of the ethmoid sinuses. Diffuse opacification noted of both mastoid sinuses. Right middle ear cavity shows mild mucosal thickening. No acute calvarial abnormality is seen. Impression: 1. Diffuse opacification of the mastoid sinuses which may represent mastoiditis. Sinus findings may also represent acute sinusitis. Possible mild right sided otitis media. 2. No acute intracranial abnormality is identified. Diagnostic code #3 Agree with preliminary report issued by [employer] (preliminary [employer] report dictated on 09/01/16, 6:08 PM Central Time)
--- NOTE | 2016-09-03 16:21 | CR ---
Soft tissue neck: Two views of the neck were obtained. Minimal steepling noted within the subglottic airway. Prevertebral soft tissues are normal. Bony structures are unremarkable. Epiglottis is normal. Impression: 1. Minimal steepling within the subglottic airway compatible with mild subglottic edema as seen in croup. 2. Soft tissue neck exam is otherwise unremarkable. Diagnostic code #3
== END 2016-09-01 19:00 ==
LOC: JD.ED 15:22
DX: A41.9 Sepsis, unspecified organism (principal); L03.311 Cellulitis of abdominal wall; H70.93 Unspecified mastoiditis, bilateral; K85.20 Alcohol induced acute pancreatitis without necrosis or infection; H66.93 Otitis media, unspecified, bilateral; F10.20 Alcohol dependence, uncomplicated; J05.0 Acute obstructive laryngitis [croup]; F10.120 Alcohol abuse with intoxication, uncomplicated; F17.210 Nicotine dependence, cigarettes, uncomplicated; E11.9 Type 2 diabetes mellitus without complications; Z87.440 Personal history of urinary (tract) infections; Z79.899 Other long term (current) drug therapy; Z90.89 Acquired absence of other organs; Z98.890 Other specified postprocedural states
CPT/HCPCS: 36415; 70360; 70450; 80053; 81001; 83605; 83690; 85025; 87040; 87086; 96361; 96365; 96375; 96376; 99285; G0480; J1170; J2405; J2930; J3370; J7040; J7050

== ENCOUNTER 2016-09-30 08:39 | Emergency (ER) | payer MEDICAID ==
[2016-09-30 09:07] VITALS: BP 135/102
--- NOTE | 2016-09-30 11:32 | EDM.PDOC ---
ED HPI GI/ABDOMINAL - General Chief Complaint: Abdominal Pain Stated Complaint: NEED FLUID DRAINED FROM ABDOMEN Time Seen by Provider: 09/30/16 09:30 Source of Information: Reports: Patient, RN notes reviewed - History of Present Illness INITIAL COMMENTS - FREE TEXT/NARRATIVE: 30-year-old female comes in with recurrent ascites. She does have history of chronic alcohol abuse and dependency. She states that she had been admitted at a [facility] not too long ago, had a lot of fluid taken off and then apparently was discharged to a [facility]. History is vague but what we understand is that she left the retirement house perhaps a week or so ago. She states that she is homeless living with friends right now. She admits that she is back to drinking alcohol again, drinking vodka. She does feel short of breath when lying flat. She feels pressure fullness of her upper abdomen. She also does feel a tightness into the upper mid chest. She states that she was on some type of prescription antacid medicine. She indicates that she does not have any of her prescription meds at this time, not sure how long she has not been taking previously prescribed medications. No current nausea or vomiting. Not coughing any more than usual. - Related Data Allergies/ADRs: Allergies Allergy/AdvReac Type Severity Reaction Status Date / Time No Known Allergies Allergy Verified 09/30/16 09:07 Home Meds: Home Meds Furosemide [Lasix] 40 mg PO DAILY 09/01/16 [History] Furosemide 80 mg PO DAILY 09/30/16 [History] Lactulose 30 mg PO BID 09/30/16 [History] Sertraline [Zoloft] 25 mg PO DAILY 09/30/16 [History] Spironolactone [Aldactone] 100 mg PO BID 09/30/16 [History] Past Medical History - Past Health History Medical/Surgical History: Denies Medical/Surgical History HEENT History: Reports: Other (see below) Other HEENT History: Pt needs glasses but does not have them Gastrointestinal History: Reports: Cirrhosis, Jaundice Genitourinary History: Reports: UTI, recurrent 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: , 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 Psychiatric History: Reports: Addiction, Anxiety, Depression Endocrine/Metabolic History: Reports: Diabetes, type II - Past Surgical History GI Surgical History: Reports: Cholecystectomy Female Surgical History: Reports: D&C Musculoskeletal Surgical History: Reports: ORIF, Other (see below) Other Musculoskeletal Surgeries/Procedures:: Right Ankle Social & Family History - Family History Family Medical History: Noncontributory Endocrine/Metabolic: Reports: Diabetes, type II - Tobacco Use Smoking Status *Q: Current Every Day Smoker Years of Tobacco use: 18 Packs/Tins Daily: 0.5 Used Tobacco, but Quit: No Second Hand Smoke Exposure: No - Caffeine Use Caffeine Use: Reports: Coffee, Soda, Tea - Alcohol Use Days Per Week of Alcohol Use: 7 Number of Drinks Per Day: 10 Total Drinks Per Week: 70 - Recreational Drug Use Recreational Drug Use: Yes Drug Use in Last 12 Months: Yes Recreational Drug Type: Reports: Methamphetamine Other Recreational Drug Type: no drugs since Recreational Drug Use Frequency: Socially Recreational Drug Last Use: - Living Situation & Occupation Living situation: Reports: single, other (Currently homeless, staying with a friend) Occupation: unemployed ED ROS GENERAL - Review of Systems Review Of Systems: See Below Constitutional: Denies: fever, chills HEENT: Reports: No symptoms Respiratory: Reports: Shortness of Breath (Especially when lying flat). Denies : Cough Cardiovascular: Reports: Chest pain (She does feel pressure over lower anterior chest) GI/Abdominal: Reports: Abdominal pain (She feels pressure discomfort of her upper abdomen). Denies: Nausea, Vomiting Musculoskeletal: Reports: no symptoms Skin: Reports: other (She has an abrasion of her left knee from previous fall) Neurological: Denies: Numbness, Tingling, Trouble Speaking, Difficulty Walking ED EXAM, GI/ABD - Physical Exam Exam: See Below General Appearance: alert, no apparent distress Throat/Mouth: Normal inspection, Normal oropharynx Head: atraumatic. No: facial swelling Neck: supple, full range of motion, other (No JVD) Respiratory/Chest: lungs clear, normal breath sounds, respiratory distress ( Mild tachypnea) Cardiovascular: tachycardia GI/Abdominal: tenderness, distention (Patient has quite marked and distention of her abdomen compatible with ascites, she does have a small fluid wave). No: guarding, rebound Back Exam: No: CVA tenderness (L), CVA tenderness (R) Extremities: other (She has superficial abrasion injury of the left knee) Neurological: alert, oriented, no motor/sensory deficits Skin Exam: Warm, Dry, Normal color Course - Vital Signs Last Recorded V/S: Last Vital Signs Temp 98.0 F 09/30/16 08:56 Pulse 129 H 09/30/16 08:56 Resp 22 H 09/30/16 08:56 BP 135/102 H 09/30/16 08:56 Pulse Ox 92 L 09/30/16 08:56 - Orders/Labs/Meds Labs: Laboratory Tests 09/30/16 09/30/16 Range/Units 09:50 09:50 WBC 15.59 H (3.98-10.04) K/mm3 RBC 4.15 (3.98-5.22) M/mm3 Hgb 13.2 (11.2-15.7) gm/L Hct 38.9 (34.1-44.9) % MCV 93.7 (79.4-94.8) fl MCH 31.8 (25.6-32.2) pg MCHC 33.9 (32.2-35.5) g/dl RDW Std Deviation 47.2 H (36.4-46.3) fL Plt Count 428 H (182-369) K/mm3 MPV 9.4 (9.4-12.3) fl Neut % (Auto) 74.6 H (34.0-71.1) % Lymph % (Auto) 16.1 L (19.3-51.7) % [place] % (Auto) 6.2 (4.7-12.5) % Eos % (Auto) 2.3 (0.7-5.8) Baso % (Auto) 0.7 (0.1-1.2) % Neut # (Auto) 11.62 H (1.56-6.13) K/mm3 Lymph # (Auto) 2.51 (1.18-3.74) K/mm3 [place] # (Auto) 0.97 H (0.24-0.36) K/mm3 Eos # (Auto) 0.36 (0.04-0.36) K/mm3 Baso # (Auto) 0.11 H (0.01-0.08) K/mm3 Sodium 140 (136-145) mEq/L Potassium 4.0 (3.5-5.1) mEq/L Chloride 104 (98-107) mEq/L Carbon Dioxide 25 (21-32) mEq/L Anion Gap 15.0 (5-15) BUN 7 (7-18) mg/dL Creatinine 0.6 (0.55-1.02) mg/dL Est Cr Clr Drug Dosing TNP Estimated GFR (MDRD) > 60 (>60) mL/min BUN/Creatinine Ratio 11.7 L (14-18) Glucose 101 (74-106) mg/dL Calcium 10.2 H (8.5-10.1) mg/dL Total Bilirubin 0.5 (0.2-1.0) mg/dL AST 62 H (15-37) U/L ALT 38 (14-59) U/L Alkaline Phosphatase 290 H (46-116) U/L Total Protein 7.1 (6.4-8.2) g/dl Albumin 2.6 L (3.4-5.0) g/dl Globulin 4.5 gm/dL Albumin/Globulin Ratio 0.6 L (1-2) Ethyl Alcohol 0.22 (0.00) gm% Meds: Medications Discontinued Medications Generic Name Dose Route Start Last Admin Trade Name Freq PRN Reason Stop Dose Admin Famotidine 20 mg 09/30/16 11:37 Pepcid PO 09/30/16 11:38 ONETIME ONE Ondansetron HCl 4 mg 09/30/16 11:37 Zofran Odt PO 09/30/16 11:38 ONETIME ONE - Re-Assessments/Exams Free Text/Narrative Re-Assessment/Exam: 09/30/16 11:15. Labs are back and are as documented. I have called Dr. Nelson Kessler, general surgeon manager relationship who has agreed to come in and do a paracentesis. When I went in to check on patient and let her know she was already visibly upset. She stated "I am having chest pain" and you have done nothing for that". I told her that we would get her some antacid medicine to help her with that and also informed her that Dr. Kessler was on his way in to do the paracentesis. Of note I had observed her a short time prior walking to her room from the bathroom in no apparent distress at all. I tried to explain to her that her chest pain is likely acid reflux. When I tried to educate her that she needs to be careful and aware that alcohol will make the acid reflux worse she got more upset. Made sure I new that she thought I was a "bad doctor" . I reminded her that Dr Kessler was on his way in to help her, that I had made arrangements for he to get that help. I was informed a short time later that she decided to leave, had signed out AMA. Departure - Departure Time of Disposition: 11:45 Disposition: Home, Self-Care 01 Clinical Impression: Ascites due to alcoholic cirrhosis Alcohol intoxication Qualifiers: Complication of substance-induced condition: uncomplicated Qualified Code(s): F10.920 - Alcohol use, unspecified with intoxication, uncomplicated Acid reflux Qualifiers: Esophagitis presence: esophagitis presence not specified Qualified Code(s): K21.9 - Gastro-esophageal reflux disease without esophagitis Referrals: Debbie Dueñas DO [Primary Care Provider] - Forms: ED Department Discharge
[2016-09-30] MEDS ORDERED: Ondansetron 4 MG Tab.DIS PO ONE (11:37)
[2016-09-30] MEDS ORDERED: Famotidine 20 MG Tab PO ONE (11:37)
== END 2016-09-30 11:40 | disposition home or self-care (01) ==
LOC: JD.ED 08:39
DX: K70.31 Alcoholic cirrhosis of liver with ascites (principal); F10.920 Alcohol use, unspecified with intoxication, uncomplicated; K21.9 Gastro-esophageal reflux disease without esophagitis; E11.9 Type 2 diabetes mellitus without complications; F41.9 Anxiety disorder, unspecified; F32.9 Major depressive disorder, single episode, unspecified; F17.210 Nicotine dependence, cigarettes, uncomplicated; Z79.899 Other long term (current) drug therapy; Z87.440 Personal history of urinary (tract) infections; Z90.49 Acquired absence of other specified parts of digestive tract
CPT/HCPCS: 36415; 80053; 85025; 99284; G0480; 99283

== ENCOUNTER 2016-10-03 05:12 | Emergency (ER) | payer MEDICAID, OTHER ==
[2016-10-03 05:26] VITALS: BP 117/85
[2016-10-03] MEDS ORDERED: Bupivacaine 0.5% 10 ML SDV INJECT ONE ×2 (05:57→07:22)
[2016-10-03] MEDS ORDERED: Sodium Chloride 0.9% 1,000 ML IV SCH (06:00)
--- NOTE | 2016-10-03 06:08 | EDM.PDOC ---
ED HPI GI/ABDOMINAL - General Chief Complaint: Abdominal Pain Stated Complaint: LIVER FAILURE Time Seen by Provider: 10/03/16 05:55 Source of Information: Reports: Patient History Limitations: Reports: No limitations - History of Present Illness INITIAL COMMENTS - FREE TEXT/NARRATIVE: 30-year-old female attends the ED to to increased shortness of breath and inability to lay down to sleep due to accumulation of ascites fluid in her abdomen. Patient has known cirrhosis of the liver from chronic alcohol abuse. She reports she has had paracentesis x18 in the past. At present she looks like she is 9 months . She reports she's unable to lie down for the last 3 nights to sleep. Diffuse abdominal discomfort. Last paracentesis was done approximately 2 weeks ago. Denies any fever or chills. She had been drinking alcohol last weekend which she feels did exacerbate the problem. Timing/Duration: Reports: Day(s):, Other (Chronic problem with cirrhosis of the liver and reaccumulation of ascites fluid.) Location: generalized Quality: Reports: ache, fullness Severity: moderate Improves with: Reports: other. Denies: defecating Worsens with: Reports: lying down, other (Can only take a very small quantity of food at a time) Context: Reports: other. Denies: sick contact, bad/questionable food ( as she feels early satiety.), out of country travel, recent surgery, recent trauma ( Cirrhosis of the liver) Associated Symptoms (-Female): Reports: back pain, loss of appetite, malaise, other (Dyspnea). 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 below) (None) - Related Data Allergies/ADRs: Allergies Allergy/AdvReac Type Severity Reaction Status Date / Time No Known Allergies Allergy Verified 10/03/16 05:23 Home Meds: Home Meds Furosemide [Lasix] 40 mg PO DAILY 09/01/16 [History] Furosemide 80 mg PO DAILY 09/30/16 [History] Lactulose 30 mg PO BID 09/30/16 [History] Sertraline [Zoloft] 25 mg PO DAILY 09/30/16 [History] Spironolactone [Aldactone] 100 mg PO BID 09/30/16 [History] Past Medical History - Past Health History Medical/Surgical History: Denies Medical/Surgical History HEENT History: Reports: Other (see below) Other HEENT History: Pt needs glasses but does not have them Respiratory History: Reports: Other (see below) Other Respiratory History: Thoracentesis Gastrointestinal History: Reports: Cirrhosis, Jaundice Genitourinary History: Reports: UTI, recurrent 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: , 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 Psychiatric History: Reports: Addiction, Anxiety, Depression Endocrine/Metabolic History: Reports: Diabetes, type II - Past Surgical History GI Surgical History: Reports: Cholecystectomy, Other (see below) Other GI Surgeries/Procedures: Paracentesis Female Surgical History: Reports: D&C Musculoskeletal Surgical History: Reports: ORIF, Other (see below) Other Musculoskeletal Surgeries/Procedures:: Right Ankle Social & Family History - Family History Family Medical History: Noncontributory Endocrine/Metabolic: Reports: Diabetes, type II - Tobacco Use Smoking Status *Q: Current Every Day Smoker Years of Tobacco use: 17 Packs/Tins Daily: 0.5 Used Tobacco, but Quit: No Second Hand Smoke Exposure: No - Caffeine Use Caffeine Use: Reports: Coffee, Soda, Tea - Alcohol Use Days Per Week of Alcohol Use: 7 Number of Drinks Per Day: 10 Total Drinks Per Week: 70 - Recreational Drug Use Recreational Drug Use: No Drug Use in Last 12 Months: Yes Recreational Drug Type: Reports: Methamphetamine Other Recreational Drug Type: no drugs since Apr. Recreational Drug Use Frequency: Socially Recreational Drug Last Use: - Living Situation & Occupation Living situation: Reports: single, other (Currently homeless, staying with a friend) Occupation: unemployed ED ROS GENERAL - Review of Systems Review Of Systems: See Below Constitutional: Reports: malaise, weakness, fatigue, weight gain (She estimates approximately 20 pound weight gain in the last 2 weeks.). Denies: fever, chills , weight loss HEENT: Reports: No symptoms Respiratory: Reports: Shortness of Breath. Denies: Wheezing, Pleuritic Chest Pain, Cough, Sputum, Hemoptysis Cardiovascular: Reports: Dyspnea on exertion. Denies: Blood pressure problem, Claudication, Edema, Lightheadedness, Orthopnea Endocrine: Reports: fatigue GI/Abdominal: Reports: Abdominal pain, Other (Stools tend to be a little but on the loose side but are still formed up.) : Reports: frequency (Due to being on diuretics. She does admit that sometimes she misses medications.) Musculoskeletal: Reports: no symptoms Skin: Reports: no symptoms Neurological: Reports: No Symptoms Psychiatric: Reports: Anxiety ED EXAM, GI/ABD - Physical Exam Exam: See Below Exam Limited By: No limitations General Appearance: alert, anxious, moderate distress Eyes: bilateral: normal appearance (No jaundice.) Throat/Mouth: Normal inspection, Normal lips, Normal oropharynx Head: atraumatic, normocephalic Neck: normal inspection, supple, non-tender, full range of motion. No: lymphadenopathy (L), lymphadenopathy (R) Respiratory/Chest: lungs clear, respiratory distress (Mild tachypnea at rest), decreased breath sounds (Decreased breath sounds to the lower 20% of lung hernandes.) Cardiovascular: normal peripheral pulses, no edema, no gallop, no murmur, no rub , tachycardia (Resting heart rate is 133 per minute.) GI/Abdominal: hypoactive bowel sounds, distention (Abdomen is grossly distended again looks like she is 9 months . It is very taut and firm to palpation. They'll to percussion throughout. Fluid wave is easily ascertained. admitted to superior) Back Exam: normal inspection, full range of motion. No: CVA tenderness (L), CVA tenderness (R) Extremities: normal inspection, normal range of motion, non-tender, no pedal edema, normal capillary refill Neurological: alert, oriented, CN II-XII intact, normal cognition, normal gait Psychiatric: normal affect, normal mood Skin Exam: Warm, Dry, Intact, Normal color, No rash Course - Vital Signs Last Recorded V/S: Last Vital Signs Temp 36.7 C 10/03/16 05:23 Pulse 133 H 10/03/16 05:23 Resp 14 10/03/16 05:23 BP 117/85 10/03/16 05:23 Pulse Ox 93 L 10/03/16 05:23 - Orders/Labs/Meds Orders: Active Orders 24 hr Category Date Time Status Sodium Chloride 0.9% [Normal Saline] 1,000 ml Med 10/03/16 06:00 Active IV ASDIRECTED Medication Orders Sodium Chloride (Normal Saline) 1,000 mls @ 100 mls/hr IV ASDIRECTED BALDO Labs: Laboratory Tests 10/03/16 10/03/16 10/03/16 Range/Units 06:04 06:04 06:04 WBC 13.11 H (3.98-10.04) K/mm3 RBC 3.85 L (3.98-5.22) M/mm3 Hgb 12.3 (11.2-15.7) gm/L Hct 36.8 (34.1-44.9) % MCV 95.6 H (79.4-94.8) fl MCH 31.9 (25.6-32.2) pg MCHC 33.4 (32.2-35.5) g/dl RDW Std Deviation 49.6 H (36.4-46.3) fL Plt Count 304 (182-369) K/mm3 MPV 9.1 L (9.4-12.3) fl Neutrophils % (Manual) 73 H (40-60) % Band Neutrophils % 0 (0-10) % Lymphocytes % (Manual) 22 (20-40) % Atypical Lymphs % 0 % Monocytes % (Manual) 3 (2-10) % Eosinophils % (Manual) 2 (0.7-5.8) % Basophils % (Manual) 0 L (0.1-1.2) Platelet Estimate Adequate RBC Morph Comment Normal PT 10.6 (8.0-13.0) SECONDS INR 0.97 Sodium 139 (136-145) mEq/L Potassium 3.7 (3.5-5.1) mEq/L Chloride 104 (98-107) mEq/L Carbon Dioxide 26 (21-32) mEq/L Anion Gap 12.7 (5-15) BUN 7 (7-18) mg/dL Creatinine 0.7 (0.55-1.02) mg/dL Est Cr Clr Drug Dosing TNP Estimated GFR (MDRD) > 60 (>60) mL/min BUN/Creatinine Ratio 10.0 L (14-18) Glucose 106 (74-106) mg/dL Calcium 9.0 (8.5-10.1) mg/dL Total Bilirubin 0.4 (0.2-1.0) mg/dL AST 50 H (15-37) U/L ALT 31 (14-59) U/L Alkaline Phosphatase 278 H (46-116) U/L Total Protein 6.3 L (6.4-8.2) g/dl Albumin 2.3 L (3.4-5.0) g/dl Globulin 4.0 gm/dL Albumin/Globulin Ratio 0.6 L (1-2) Meds: Medications Generic Name Dose Route Start Last Admin Trade Name Darron PRN Reason Stop Dose Admin Sodium Chloride 1,000 mls @ 100 mls/hr 10/03/16 06:00 Normal Saline IV ASDIRECTED BALDO Discontinued Medications Generic Name Dose Route Start Last Admin Trade Name Darron PRN Reason Stop Dose Admin Bupivacaine HCl 10 ml 10/03/16 05:57 10/03/16 07:23 Sensorcaine-Mpf 0.5% INJECT 10/03/16 05:58 10 ml ONETIME ONE Administration Bupivacaine HCl Confirm 10/03/16 06:55 10/03/16 07:23 Sensorcaine-Mpf 0.5% Administered 10/03/16 06:56 Not Given Dose 10 ml .ROUTE .STK-MED ONE Bupivacaine HCl 10 ml 10/03/16 07:22 10/03/16 07:23 Sensorcaine-Mpf 0.5% INJECT 10/03/16 07:23 10 ml ONETIME ONE Administration - Radiology Interpretation Free Text/Narrative:: 30-year-old female with known chronic cirrhosis of the liver from alcoholism and chronic ascites presents to the ED for for paracentesis. She is to have this done every 2-3 weeks on average 2 to accumulation of ascites fluid. For the last 3 days she's been unable to lie flat to sleep. She finds the operating room for food. She is short of breath on minimal exertion. She does report that she was drinking alcohol on the weekend and seemed to exacerbate the situation. She also is at times noncompliant with her diuretics. Examination confirms marked ascites with decreased air entry to both lung hernandes. Plan routine lab work including coags to be done. Patient will be prepped for paracentesis. - Re-Assessments/Exams Free Text/Narrative Re-Assessment/Exam: 10/03/16 07:00 labs revealed a white count of 13.11 with 73% neutrophils no bands hemoglobin is good at 12.3 hematocrit of 36.8. Platelets were 304,000. Coags were normal with a PT of 10.6 INR 0.97. Sodium 139 potassium 3.7 chloride 104 bicarbonate 26. Glucose 106 AST of 50 ALT 31 alkaline phosphatase 278. Therefore it was felt safe to proceed with paracentesis procedure. Sent for this procedure was signed. 10/03/16 07:30: Paracentesis done through the right lower quadrant of the abdomen. Use Marcaine 0.5% without epinephrine for anesthesia plus a little lidocaine 1%. Obtain 6.3 L of ricki-colored foamy fluid from the abdominal cavity. Patient achieved good relief of abdominal discomfort and ability to breathe freely. Discharged home to continue all current medications as previously prescribed. Followup with her normal care provider as planned. The puncture wound was closed with 2 4-0 Vicryl sutures that should followed on their own over the next 7-10 days. Departure - Departure Time of Disposition: 07:33 Disposition: Home, Self-Care 01 Condition: fair Clinical Impression: Cirrhosis of liver not due to alcohol Ascites Qualifiers: Ascites type: due to alcoholic hepatitis Qualified Code(s): K70.11 - Alcoholic hepatitis with ascites Instructions: Cirrhosis, Ascites Referrals: Debbie Dueñas DO [Primary Care Provider] - Forms: ED Department Discharge Additional Instructions: Evaluation in the emergency room today in regards to recurrence of severe ascites causing difficulty breathing and eating. Known chronic cirrhosis of the liver with recurrent need for paracentesis. Lab work done today revealed coags to be normal. Hemoglobin was 12.3 today. Sodium was 139 potassium was normal at 3.7. Paracentesis was performed in the right lower quadrant of the abdomen under local anesthetic and we obtained 6.3 L of ascites fluid. 2 diet Vicryl sutures were used to close the puncture wound in the right lower quadrant. These will soften with showering in August, when they become loose which is usually 7-10 days. At this time continue all current medications as previously prescribed. - My Orders Last 24 Hours: My Active Orders 10/03/16 06:00 Sodium Chloride 0.9% [Normal Saline] 1,000 ml IV ASDIRECTED - Assessment/Plan Last 24 Hours: My Active Orders 10/03/16 06:00 Sodium Chloride 0.9% [Normal Saline] 1,000 ml IV ASDIRECTED Paracentesis - Paracentesis Paracentesis Indication: ascites Location: RLQ Skin prep: CDC/MBT guidelines, sterile drapes, chlorhexidine Ultrasound guided: No Local anesthesia: other Local anesthesia volume: 10cc (Marcaine 0.5%) Number of Attempts: 2 Device Used: 8 Fr kit device Fluid: yellow Aspirated volume (mls): 6,300 Complications: No Dressing: other (To 4-0 Vicryl sutures used to close the puncture wound right lower quadrant and then topical Dermabond.)
[2016-10-03] MEDS ORDERED: Bupivacaine 0.5% 10 ML SDV ONE (06:55)
== END 2016-10-03 07:58 | disposition home or self-care (01) ==
LOC: JD.ED 05:12
DX: K70.11 Alcoholic hepatitis with ascites (principal); K74.60 Unspecified cirrhosis of liver; F41.8 Other specified anxiety disorders; F17.210 Nicotine dependence, cigarettes, uncomplicated; E11.9 Type 2 diabetes mellitus without complications; Z90.49 Acquired absence of other specified parts of digestive tract; Z98.890 Other specified postprocedural states; Z79.899 Other long term (current) drug therapy
CPT/HCPCS: 36415; 49082; 49084; 80053; 85025; 85610; 99284; 99284-25; C1729

== ENCOUNTER 2016-12-17 10:47 | Emergency (ER) | payer MEDICAID, OTHER, SELFPAY ==
[2016-12-17 11:04] VITALS: BP 139/99
[2016-12-17] MEDS ORDERED: Sodium Chloride 0.9% 10 ML Syringe FLUSH PRN (11:16)
[2016-12-17] MEDS ORDERED: Ondansetron 4 MG/2 ML SDV IVPUSH ONE (11:17)
--- NOTE | 2016-12-17 11:37 | EDM.PDOC ---
ED HPI GENERAL MEDICAL PROBLEM - General Chief Complaint: Abdominal Pain Stated Complaint: SOB/RAPID HEARTBEAT Time Seen by Provider: 12/17/16 10:56 Source of Information: Reports: Patient History Limitations: Reports: No Limitations - History of Present Illness INITIAL COMMENTS - FREE TEXT/NARRATIVE: The patient has a history of cirrhosis from alcohol abuse. She gets paricentesis every 2 to 3 weeks to remove fluid. She has increased abdominal girth and shortness of breath. She has abdominal pain. She was in [place] for awhile. She was admitted there a few months ago. She was sent for treatment and she was sober for awhile. She came back to [place] a few days ago and she started drinking again. She last drank earlier today. She has some nausea but no vomiting. Onset: Gradual Duration: Week(s): Location: Reports: Abdomen Quality: Reports: Sharp Severity: Moderate Improves with: Reports: None Worsens with: Reports: None Associated Symptoms: Reports: Nausea/Vomiting. Denies: Chest Pain, Cough, Fever /Chills, Shortness of Breath Abdominal Pain Score (Numeric/FACES): 10 - Related Data Allergies Allergy/AdvReac Type Severity Reaction Status Date / Time No Known Allergies Allergy Verified 12/17/16 10:56 Home Meds: Home Meds Furosemide [Lasix] 40 mg PO DAILY 09/01/16 [History] Furosemide 80 mg PO DAILY 09/30/16 [History] Lactulose 30 mg PO BID 09/30/16 [History] Sertraline [Zoloft] 25 mg PO DAILY 09/30/16 [History] Spironolactone [Aldactone] 100 mg PO BID 09/30/16 [History] Cetirizine [ZyrTEC] 5 mg PO DAILY 12/17/16 [History] Folic Acid 1 mg PO DAILY 12/17/16 [History] Gabapentin [Neurontin] 100 mg PO BID 12/17/16 [History] Ibuprofen 200 mg PO Q8HR PRN 12/17/16 [History] Multivitamin [Daily Mackenzie] 1 tab PO ACDINNER 12/17/16 [History] Nicotine [Nicotine Patch] 1 patch TOP DAILY 12/17/16 [History] Pantoprazole [ProTONIX] 40 mg PO DAILY 12/17/16 [History] Past Medical History - Past Health History Medical/Surgical History: Denies Medical/Surgical History HEENT History: Reports: Other (See Below) Other HEENT History: Pt needs glasses but does not have them Respiratory History: Reports: Other (See Below) Other Respiratory History: Thoracentesis Gastrointestinal History: Reports: Cirrhosis, Jaundice Genitourinary History: Reports: UTI, Recurrent 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: , Therapeutic Psychiatric History: Reports: Addiction, Anxiety, Depression, Other (See Below) Other Psychiatric History: drug (meth) induced psychosis Endocrine/Metabolic History: Reports: Diabetes, Type II - Past Surgical History GI Surgical History: Reports: Cholecystectomy, Other (See Below) Musculoskeletal Surgical History: Reports: ORIF, Other (See Below) Social & Family History - Family History Family Medical History: Noncontributory Endocrine/Metabolic: Reports: Diabetes, type II - Tobacco Use Smoking Status *Q: Current Every Day Smoker Years of Tobacco use: 17 Packs/Tins Daily: 0.5 Used Tobacco, but Quit: No Second Hand Smoke Exposure: No - Caffeine Use Caffeine Use: Reports: Coffee, Energy Drinks, Soda, Tea - Alcohol Use Days Per Week of Alcohol Use: 7 Number of Drinks Per Day: 10 Total Drinks Per Week: 70 - Recreational Drug Use Recreational Drug Use: Yes Drug Use in Last 12 Months: Yes Recreational Drug Type: Reports: Cocaine, Methamphetamine Other Recreational Drug Type: pt used cocaine 2 years ago. Pt states she is not an IV drug user, used meth 2 days ago. Recreational Drug Use Frequency: Socially Recreational Drug Last Use: - Living Situation & Occupation Living situation: Reports: Single, Other Occupation: Unemployed ED ROS GENERAL - Review of Systems Review Of Systems: See Below Constitutional: Reports: No Symptoms HEENT: Reports: No Symptoms Respiratory: Reports: Shortness of Breath. Denies: Cough Cardiovascular: Reports: No Symptoms Endocrine: Reports: No Symptoms GI/Abdominal: Reports: Abdominal Pain, Nausea : Reports: No Symptoms Musculoskeletal: Reports: No Symptoms Skin: Reports: No Symptoms ED EXAM, GI/ABD - Physical Exam Exam: See Below Exam Limited By: No Limitations General Appearance: Alert, No Apparent Distress Ears: Normal External Exam Nose: Normal Inspection Head: Atraumatic, Normocephalic Neck: Normal Inspection Respiratory/Chest: No Respiratory Distress, Lungs Clear, Normal Breath Sounds Cardiovascular: Regular Rate, Rhythm, No Edema, No Murmur GI/Abdominal Exam: Soft, Other (Distended abdomen with generalized pain upon palpation) Back Exam: Normal Inspection Extremities: Normal Inspection Course - Vital Signs Last Recorded V/S: Last Vital Signs Temp 97.5 F 12/17/16 10:56 Pulse 130 H 12/17/16 10:56 Resp 20 12/17/16 10:56 BP 139/99 H 12/17/16 10:56 Pulse Ox 95 12/17/16 10:56 - Orders/Labs/Meds Orders: Active Orders 24 hr Category Date Time Status Peripheral IV Care [RC] . DIRECTED Care 12/17/16 11:16 Active Sodium Chloride 0.9% [Saline Flush] Med 12/17/16 11:16 Active 10 ml FLUSH ASDIRECTED PRN Peripheral IV Insertion Adult [OM.PC] Stat Oth 12/17/16 11:16 Ordered Medication Orders Sodium Chloride (Saline Flush) 10 ml FLUSH ASDIRECTED PRN PRN Reason: Keep Vein Open Last Admin: 12/17/16 11:25 Dose: 10 ml Labs: Laboratory Tests 12/17/16 12/17/16 12/17/16 Range/Units 11:30 11:30 11:30 WBC 9.32 (3.98-10.04) K/mm3 RBC 4.56 (3.98-5.22) M/mm3 Hgb 13.4 (11.2-15.7) gm/L Hct 39.7 (34.1-44.9) % MCV 87.1 (79.4-94.8) fl MCH 29.4 (25.6-32.2) pg MCHC 33.8 (32.2-35.5) g/dl RDW Std Deviation 49.3 H (36.4-46.3) fL Plt Count 485 H (182-369) K/mm3 MPV 8.5 L (9.4-12.3) fl Neut % (Auto) 63.5 (34.0-71.1) % Lymph % (Auto) 25.0 (19.3-51.7) % Daniels % (Auto) 8.4 (4.7-12.5) % Eos % (Auto) 2.0 (0.7-5.8) Baso % (Auto) 1.0 (0.1-1.2) % Neut # (Auto) 5.92 (1.56-6.13) K/mm3 Lymph # (Auto) 2.33 (1.18-3.74) K/mm3 Daniels # (Auto) 0.78 H (0.24-0.36) K/mm3 Eos # (Auto) 0.19 (0.04-0.36) K/mm3 Baso # (Auto) 0.09 H (0.01-0.08) K/mm3 Sodium 136 (136-145) mEq/L Potassium 3.7 (3.5-5.1) mEq/L Chloride 102 (98-107) mEq/L Carbon Dioxide 22 (21-32) mEq/L Anion Gap 15.7 H (5-15) BUN 9 (7-18) mg/dL Creatinine 0.8 (0.55-1.02) mg/dL Est Cr Clr Drug Dosing 79.11 mL/min Estimated GFR (MDRD) > 60 (>60) mL/min BUN/Creatinine Ratio 11.3 L (14-18) Glucose 99 (74-106) mg/dL Calcium 8.5 (8.5-10.1) mg/dL Total Bilirubin 0.5 (0.2-1.0) mg/dL AST 36 (15-37) U/L ALT 22 (14-59) U/L Alkaline Phosphatase 217 H (46-116) U/L Total Protein 6.3 L (6.4-8.2) g/dl Albumin 2.5 L (3.4-5.0) g/dl Globulin 3.8 gm/dL Albumin/Globulin Ratio 0.7 L (1-2) Lipase 234 (73-393) U/L HCG, Qual Negative (NEGATIVE) Urine Opiates Screen (NEGATIVE) Ur Buprenorphine Scrn (NEGATIVE) Ur Oxycodone Screen (NEGATIVE) Urine Methadone Screen (NEGATIVE) Ur Propoxyphene Screen (NEGATIVE) Ur Barbiturates Screen (NEGATIVE) Ur Tricyclics Screen (NEGATIVE) Ur Phencyclidine Scrn (NEGATIVE) Ur Amphetamine Screen (NEGATIVE) U Methamphetamines Scrn (NEGATIVE) U Benzodiazepines Scrn (NEGATIVE) U Cocaine Metab Screen (NEGATIVE) U Marijuana (THC) Screen (NEGATIVE) Ethyl Alcohol 0.22 (0.00) gm% 12/17/16 Range/Units 11:42 WBC (3.98-10.04) K/mm3 RBC (3.98-5.22) M/mm3 Hgb (11.2-15.7) gm/L Hct (34.1-44.9) % MCV (79.4-94.8) fl MCH (25.6-32.2) pg MCHC (32.2-35.5) g/dl RDW Std Deviation (36.4-46.3) fL Plt Count (182-369) K/mm3 MPV (9.4-12.3) fl Neut % (Auto) (34.0-71.1) % Lymph % (Auto) (19.3-51.7) % Daniels % (Auto) (4.7-12.5) % Eos % (Auto) (0.7-5.8) Baso % (Auto) (0.1-1.2) % Neut # (Auto) (1.56-6.13) K/mm3 Lymph # (Auto) (1.18-3.74) K/mm3 Daniels # (Auto) (0.24-0.36) K/mm3 Eos # (Auto) (0.04-0.36) K/mm3 Baso # (Auto) (0.01-0.08) K/mm3 Sodium (136-145) mEq/L Potassium (3.5-5.1) mEq/L Chloride (98-107) mEq/L Carbon Dioxide (21-32) mEq/L Anion Gap (5-15) BUN (7-18) mg/dL Creatinine (0.55-1.02) mg/dL Est Cr Clr Drug Dosing mL/min Estimated GFR (MDRD) (>60) mL/min BUN/Creatinine Ratio (14-18) Glucose (74-106) mg/dL Calcium (8.5-10.1) mg/dL Total Bilirubin (0.2-1.0) mg/dL AST (15-37) U/L ALT (14-59) U/L Alkaline Phosphatase (46-116) U/L Total Protein (6.4-8.2) g/dl Albumin (3.4-5.0) g/dl Globulin gm/dL Albumin/Globulin Ratio (1-2) Lipase (73-393) U/L HCG, Qual (NEGATIVE) Urine Opiates Screen Negative (NEGATIVE) Ur Buprenorphine Scrn Negative (NEGATIVE) Ur Oxycodone Screen Negative (NEGATIVE) Urine Methadone Screen Negative (NEGATIVE) Ur Propoxyphene Screen Negative (NEGATIVE) Ur Barbiturates Screen Negative (NEGATIVE) Ur Tricyclics Screen Negative (NEGATIVE) Ur Phencyclidine Scrn Negative (NEGATIVE) Ur Amphetamine Screen Presumptive positive H (NEGATIVE) U Methamphetamines Scrn Presumptive positive H (NEGATIVE) U Benzodiazepines Scrn Negative (NEGATIVE) U Cocaine Metab Screen Negative (NEGATIVE) U Marijuana (THC) Screen Negative (NEGATIVE) Ethyl Alcohol (0.00) gm% Meds: Medications Generic Name Dose Route Start Last Admin Trade Name Freq PRN Reason Stop Dose Admin Sodium Chloride 10 ml 12/17/16 11:16 12/17/16 11:25 Saline Flush FLUSH 10 ml ASDIRECTED PRN Administration Keep Vein Open Discontinued Medications Generic Name Dose Route Start Last Admin Trade Name Freq PRN Reason Stop Dose Admin Hydromorphone HCl 1 mg 12/17/16 12:01 12/17/16 12:07 Dilaudid IVPUSH 12/17/16 12:02 1 mg ONETIME ONE Administration Lidocaine HCl 50 ml 12/17/16 11:59 12/17/16 12:46 Xylocaine 1% INJECT 12/17/16 12:00 Not Given ONETIME ONE Ondansetron HCl 4 mg 12/17/16 11:17 12/17/16 11:28 Zofran IVPUSH 12/17/16 11:18 4 mg ONETIME ONE Administration - Re-Assessments/Exams Free Text/Narrative Re-Assessment/Exam: 12/17/16 11:37 I ordered an IV saline lock, zofran 4mg IV, labs, and I will do a paracentesis. 12/17/16 13:30 Her CBC was negative. Her anion gap was elevated at 15.7. Her alk phos was elevated at 217. Her total protein was 6.3. Her lipase was normal at 234. Her HCG was negative. Her UDS was positive for meth and amphetamines. Her ETOH was elevated at 0.22. I did a paracentesis and got out 7 1/2 liters of yellow clear fluid. I will discharge her home with all of her medications. 12/17/16 13:47 She got nauseated so I ordered some reglan 10mg IV. Departure - Departure Time of Disposition: 13:35 Disposition: Home, Self-Care 01 Condition: Good Clinical Impression: Ascites due to alcoholic cirrhosis Alcohol intoxication Qualifiers: Complication of substance-induced condition: uncomplicated Qualified Code(s): F10.920 - Alcohol use, unspecified with intoxication, uncomplicated - Discharge Information Referrals: Nelson Kessler MD [Physician] - 2 Weeks Forms: ED Department Discharge Additional Instructions: Take your medication as prescribed. Stop drinking. Call [facility] at [phone] to get some help. Follow up with Dr Kessler and find another primary care physician. Please return if you are worse. - My Orders Last 24 Hours: My Active Orders 12/17/16 11:16 Peripheral IV Care [RC] . DIRECTED Sodium Chloride 0.9% [Saline Flush] 10 ml FLUSH ASDIRECTED PRN Peripheral IV Insertion Adult [OM.PC] Stat - Assessment/Plan Last 24 Hours: My Active Orders 12/17/16 11:16 Peripheral IV Care [RC] . DIRECTED Sodium Chloride 0.9% [Saline Flush] 10 ml FLUSH ASDIRECTED PRN Peripheral IV Insertion Adult [OM.PC] Stat Paracentesis - Paracentesis Paracentesis Indication: ascites Location: RLQ Skin prep: CDC/MBT Guidelines, Sterile Drapes, Chlorhexidine Ultrasound guided: Yes Local anesthesia: lidocaine 1 % Local anesthesia volume: 5cc Number of Attempts: 1 Device Used: 8 Fr kit device Fluid: yellow, clear Complications: No Dressing: adhesive dressing
[2016-12-17] MEDS ORDERED: HYDROmorphone 1 MG/ML Syringe IVPUSH ONE (12:01)
[2016-12-17] MEDS: Lidocaine 1% 50 ML MDV INJECT ONE ×2 (12:08→12:46)
[2016-12-17] MEDS ORDERED: Metoclopramide 10 MG/2 ML SDV IVPUSH ONE (13:45)
== END 2016-12-17 14:00 | disposition home or self-care (01) ==
LOC: JD.ED 10:47
DX: K70.31 Alcoholic cirrhosis of liver with ascites (principal); F10.129 Alcohol abuse with intoxication, unspecified; F41.9 Anxiety disorder, unspecified; F32.9 Major depressive disorder, single episode, unspecified; E11.9 Type 2 diabetes mellitus without complications; F17.210 Nicotine dependence, cigarettes, uncomplicated; Z90.49 Acquired absence of other specified parts of digestive tract; Z79.899 Other long term (current) drug therapy; Z87.440 Personal history of urinary (tract) infections
CPT/HCPCS: 36415; 49082; 80053; 80306; 83690; 84703; 85025; 96374; 96375; 99284; G0480; J1170; J2405; J2765; J7050; 49083; C1729

== ENCOUNTER 2016-12-26 12:27 | Emergency (ER) | payer MEDICAID ==
[2016-12-26 12:36] VITALS: BP 108/75
[2016-12-26] MEDS ORDERED: Sodium Chloride 0.9% 10 ML Syringe FLUSH PRN (12:51)
[2016-12-26] MEDS ORDERED: Sodium Chloride 0.9% 1,000 ML IV SCH (13:00)
[2016-12-26] MEDS ORDERED: HYDROmorphone 1 MG/ML Syringe IVPUSH ONE (13:11)
--- NOTE | 2016-12-26 14:27 | EDM.PDOCBH ---
ED HPI GENERAL MEDICAL PROBLEM - General Chief Complaint: Drug or Alcohol Abuse Stated Complaint: TROUBLE BREATHING Time Seen by Provider: 12/26/16 12:45 Source of Information: Reports: Patient History Limitations: Reports: No Limitations - History of Present Illness INITIAL COMMENTS - FREE TEXT/NARRATIVE: The patient presents with shortness of breath and abdominal distension. She has a history of alcohol abuse and cirrhosis with ascities. She has slowed her drinking down. She last drank a few days ago. She has no fever, chills, cough , chest pain, shortness of breath, nausea or vomiting. She was last here 8 days ago for a paracentesis. Onset: Gradual Duration: Day(s): Improves with: Reports: None Worsens with: Reports: None Associated Symptoms: Reports: Shortness of Breath. Denies: Cough, Nausea/ Vomiting - Related Data Allergies Allergy/AdvReac Type Severity Reaction Status Date / Time No Known Allergies Allergy Verified 12/26/16 12:36 Home Meds: Home Meds Furosemide [Lasix] 40 mg PO DAILY 09/01/16 [History] Furosemide 80 mg PO DAILY 09/30/16 [History] Lactulose 20 gram PO BID 09/30/16 [History] Sertraline [Zoloft] 50 mg PO DAILY 09/30/16 [History] Spironolactone [Aldactone] 100 mg PO BID 09/30/16 [History] Cetirizine [ZyrTEC] 5 mg PO DAILY 12/17/16 [History] Folic Acid 1 mg PO DAILY 12/17/16 [History] Gabapentin [Neurontin] 100 mg PO BID 12/17/16 [History] Ibuprofen 200 mg PO Q8HR PRN 12/17/16 [History] Multivitamin [Daily Mackenzie] 1 tab PO ACDINNER 12/17/16 [History] Nicotine [Nicotine Patch] 1 patch TOP DAILY 12/17/16 [History] Pantoprazole [ProTONIX] 40 mg PO DAILY 12/17/16 [History] Past Medical History - Past Health History Medical/Surgical History: Denies Medical/Surgical History HEENT History: Reports: Other (See Below) Other HEENT History: Pt needs glasses but does not have them Respiratory History: Reports: Other (See Below) Other Respiratory History: Thoracentesis Gastrointestinal History: Reports: Cirrhosis, Jaundice Genitourinary History: Reports: UTI, Recurrent 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: , 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 Psychiatric History: Reports: Addiction, Anxiety, Depression, Other (See Below) Other Psychiatric History: drug (meth) induced psychosis Endocrine/Metabolic History: Reports: Diabetes, Type II - Past Surgical History GI Surgical History: Reports: Cholecystectomy, Other (See Below) Musculoskeletal Surgical History: Reports: ORIF, Other (See Below) Social & Family History - Family History Family Medical History: Noncontributory Endocrine/Metabolic: Reports: Diabetes, type II - Tobacco Use Smoking Status *Q: Current Every Day Smoker Years of Tobacco use: 10 Packs/Tins Daily: 1 Used Tobacco, but Quit: No Second Hand Smoke Exposure: No - Caffeine Use Caffeine Use: Reports: Coffee, Energy Drinks, Soda, Tea - Alcohol Use Days Per Week of Alcohol Use: 7 Number of Drinks Per Day: 10 Total Drinks Per Week: 70 - Recreational Drug Use Recreational Drug Use: Yes Drug Use in Last 12 Months: Yes Recreational Drug Type: Reports: Cocaine, Methamphetamine Other Recreational Drug Type: pt used cocaine 2 years ago. Pt states she is not an IV drug user, used meth 2 days ago. Recreational Drug Use Frequency: Socially Recreational Drug Last Use: - Living Situation & Occupation Living situation: Reports: Single, Other Occupation: Unemployed ED ROS GENERAL - Review of Systems Review Of Systems: See Below Constitutional: Reports: No Symptoms HEENT: Reports: No Symptoms Respiratory: Reports: Shortness of Breath Cardiovascular: Reports: No Symptoms Endocrine: Reports: No Symptoms GI/Abdominal: Reports: Other (Distension) : Reports: No Symptoms Musculoskeletal: Reports: No Symptoms Skin: Reports: No Symptoms ED EXAM, BEHAVIORAL HEALTH - Physical Exam Exam: See Below Exam Limited By: No Limitations General Appearance: Alert, No Apparent Distress Ears: Normal External Exam Nose: Normal Inspection Head: Atraumatic, Normocephalic Neck: Normal Inspection Respiratory/Chest: No Respiratory Distress, Lungs Clear, Normal Breath Sounds Cardiovascular: Regular Rate, Rhythm, No Edema, No Murmur GI/Abdominal: Soft, Distended, Tender (Mild generalized) Back Exam: Normal Inspection Extremities: Normal Inspection Neurological: Alert, No Motor/Sensory Deficits, Oriented x 3 COURSE, BEHAVIORAL HEALTH COMP - Course Vital Signs: Last Vital Signs Temp 96.9 F 12/26/16 12:33 Pulse 86 12/26/16 12:33 Resp 18 12/26/16 12:33 BP 108/75 12/26/16 12:33 Pulse Ox 97 12/26/16 12:33 Orders, Labs, Meds: Active Orders 24 hr Category Date Time Status Cardiac Monitoring [RC] . DIRECTED Care 12/26/16 12:51 Active Peripheral IV Care [RC] . DIRECTED Care 12/26/16 12:52 Active Sodium Chloride 0.9% [Normal Saline] 1,000 ml Med 12/26/16 13:00 Active IV .BOLUS Sodium Chloride 0.9% [Saline Flush] Med 12/26/16 12:51 Active 10 ml FLUSH ASDIRECTED PRN Peripheral IV Insertion Adult [OM.PC] Stat Oth 12/26/16 12:51 Ordered Medication Orders Sodium Chloride (Normal Saline) 1,000 mls @ 1,000 mls/hr IV .BOLUS BALDO Last Admin: 12/26/16 13:05 Dose: 1,000 mls/hr Sodium Chloride (Saline Flush) 10 ml FLUSH ASDIRECTED PRN PRN Reason: Keep Vein Open Last Admin: 12/26/16 13:05 Dose: 10 ml Laboratory Tests 12/26/16 12/26/16 Range/Units 13:00 13:00 WBC 7.50 (3.98-10.04) K/mm3 RBC 4.17 (3.98-5.22) M/mm3 Hgb 12.2 (11.2-15.7) gm/L Hct 37.0 (34.1-44.9) % MCV 88.7 (79.4-94.8) fl MCH 29.3 (25.6-32.2) pg MCHC 33.0 (32.2-35.5) g/dl RDW Std Deviation 51.1 H (36.4-46.3) fL Plt Count 194 (182-369) K/mm3 MPV 9.7 (9.4-12.3) fl Neut % (Auto) 60.9 (34.0-71.1) % Lymph % (Auto) 25.2 (19.3-51.7) % [place] % (Auto) 10.8 (4.7-12.5) % Eos % (Auto) 2.4 (0.7-5.8) Baso % (Auto) 0.4 (0.1-1.2) % Neut # (Auto) 4.57 (1.56-6.13) K/mm3 Lymph # (Auto) 1.89 (1.18-3.74) K/mm3 [place] # (Auto) 0.81 H (0.24-0.36) K/mm3 Eos # (Auto) 0.18 (0.04-0.36) K/mm3 Baso # (Auto) 0.03 (0.01-0.08) K/mm3 Sodium 137 (136-145) mEq/L Potassium 3.1 L (3.5-5.1) mEq/L Chloride 101 (98-107) mEq/L Carbon Dioxide 31 (21-32) mEq/L Anion Gap 8.1 (5-15) BUN 23 H (7-18) mg/dL Creatinine 1.4 H (0.55-1.02) mg/dL Est Cr Clr Drug Dosing TNP Estimated GFR (MDRD) 43 (>60) mL/min BUN/Creatinine Ratio 16.4 (14-18) Glucose 105 (74-106) mg/dL Calcium 8.1 L (8.5-10.1) mg/dL Total Bilirubin 0.7 (0.2-1.0) mg/dL AST 39 H (15-37) U/L ALT 24 (14-59) U/L Alkaline Phosphatase 208 H (46-116) U/L Total Protein 6.2 L (6.4-8.2) g/dl Albumin 2.1 L (3.4-5.0) g/dl Globulin 4.1 gm/dL Albumin/Globulin Ratio 0.5 L (1-2) Lipase 384 (73-393) U/L Ethyl Alcohol 0.00 (0.00) gm% Medications Generic Name Dose Route Start Last Admin Trade Name Freq PRN Reason Stop Dose Admin Sodium Chloride 1,000 mls @ 1,000 mls/hr 12/26/16 13:00 12/26/16 13:05 Normal Saline IV 1,000 mls/hr .BOLUS BALDO Administration Sodium Chloride 10 ml 12/26/16 12:51 12/26/16 13:05 Saline Flush FLUSH 10 ml ASDIRECTED PRN Administration Keep Vein Open Discontinued Medications Generic Name Dose Route Start Last Admin Trade Name Freq PRN Reason Stop Dose Admin Hydromorphone HCl 1 mg 12/26/16 13:11 12/26/16 13:19 Dilaudid IVPUSH 12/26/16 13:12 1 mg ONETIME ONE Administration Re-Assessment/Re-Exam: Her CBC looks good. Her K was a little low at 3.1. Her creatinine was a little elevated at 1.4. Her AST was 39. Her Alk Phos was elevated at 208. Her lipase was normal at 384. Her ETOH was negative. I did a paracentesis and got over 4Ls of fluid. She feels good. I will discharge her home. I will try to get her in to see Dr Kessler. Departure - Departure Time of Disposition: 14:40 Disposition: Home, Self-Care 01 Condition: Good Clinical Impression: Hypokalemia due to inadequate potassium intake, Ascites due to alcoholic cirrhosis Ascites Qualifiers: Ascites type: due to alcoholic hepatitis Qualified Code(s): K70.11 - Alcoholic hepatitis with ascites - Discharge Information Referrals: Nelson Kessler MD [Physician] - Additional Instructions: Take your medication as prescribed. Follow up with Dr Kessler January 04 at 3: 15. Please return if you are worse. - My Orders Last 24 Hours: My Active Orders 12/26/16 12:51 Cardiac Monitoring [RC] . DIRECTED Sodium Chloride 0.9% [Saline Flush] 10 ml FLUSH ASDIRECTED PRN Peripheral IV Insertion Adult [OM.PC] Stat 12/26/16 12:52 Peripheral IV Care [RC] . DIRECTED 12/26/16 13:00 Sodium Chloride 0.9% [Normal Saline] 1,000 ml IV .BOLUS - Assessment/Plan Last 24 Hours: My Active Orders 12/26/16 12:51 Cardiac Monitoring [RC] . DIRECTED Sodium Chloride 0.9% [Saline Flush] 10 ml FLUSH ASDIRECTED PRN Peripheral IV Insertion Adult [OM.PC] Stat 12/26/16 12:52 Peripheral IV Care [RC] . DIRECTED 12/26/16 13:00 Sodium Chloride 0.9% [Normal Saline] 1,000 ml IV .BOLUS Paracentesis - Paracentesis Paracentesis Indication: ascites Location: RLQ Skin prep: CDC/MBT Guidelines, Sterile Drapes, Chlorhexidine Ultrasound guided: Yes Local anesthesia: lidocaine 1 % Local anesthesia volume: 5cc Number of Attempts: 1 Device Used: 8 Fr kit device Fluid: yellow, clear Complications: No Dressing: adhesive dressing
== END 2016-12-26 14:45 | disposition home or self-care (01) ==
LOC: JD.ED 12:27
DX: K70.31 Alcoholic cirrhosis of liver with ascites (principal); E87.6 Hypokalemia; E11.9 Type 2 diabetes mellitus without complications; F41.9 Anxiety disorder, unspecified; F32.9 Major depressive disorder, single episode, unspecified; Z90.49 Acquired absence of other specified parts of digestive tract; Z98.890 Other specified postprocedural states; F17.210 Nicotine dependence, cigarettes, uncomplicated; Z79.899 Other long term (current) drug therapy; Z87.440 Personal history of urinary (tract) infections
CPT/HCPCS: 36415; 49082; 80053; 83690; 85025; 96361; 96374; 99285; G0480; J1170; J7040; J7050; 49083; 99284; C1729

== ENCOUNTER 2020-09-24 21:53 | Emergency (ER) | payer MEDICAID ==
--- NOTE | 2020-09-24 22:12 | EDM.PDOC ---
ED HPI GENERAL MEDICAL PROBLEM - General Chief Complaint: General Stated Complaint: COUGHING UP BLOOD Time Seen by Provider: 09/24/20 22:11 - History of Present Illness INITIAL COMMENTS - FREE TEXT/NARRATIVE: 34-year-old female presents the emergency room intoxicated complaining of coughing up blood. Patient started coughing up blood this evening. She has been drinking way too much and she acknowledges this. However she is no longer using drugs. She is trying to get back into as she has had a long-term addiction problem. Patient states she has been coughing frequently and she gets a dry irritation in the back of her throat. At times when she coughs she coughs up multiple small speckles of blood. She has had a lot of congestion lately she has been using Sudafed Benadryl Zyrtec. She is also takes Prilosec OTC. Patient denies any illicit drugs at this time. - Related Data Allergies Allergy/AdvReac Type Severity Reaction Status Date / Time No Known Allergies Allergy Verified 12/26/16 12:36 Home Meds: Home Meds Furosemide [Lasix] 40 mg PO DAILY 09/01/16 [History] Furosemide 80 mg PO DAILY 09/30/16 [History] Lactulose 20 gram PO BID 09/30/16 [History] Sertraline [Zoloft] 50 mg PO DAILY 09/30/16 [History] Spironolactone [Aldactone] 100 mg PO BID 09/30/16 [History] Cetirizine [ZyrTEC] 5 mg PO DAILY 12/17/16 [History] Folic Acid 1 mg PO DAILY 12/17/16 [History] Gabapentin [Neurontin] 100 mg PO BID 12/17/16 [History] Ibuprofen 200 mg PO Q8HR PRN 12/17/16 [History] Multivitamin [Daily Mackenzie] 1 tab PO ACDINNER 12/17/16 [History] Nicotine [Nicotine Patch] 1 patch TOP DAILY 12/17/16 [History] Pantoprazole [ProTONIX] 40 mg PO DAILY 12/17/16 [History] Sucralfate [Carafate] 1 gm PO ASDIRECTED #60 tablet 09/24/20 [Rx] Past Medical History - Past Health History Medical/Surgical History: Denies Medical/Surgical History HEENT History: Reports: Other (See Below) Other HEENT History: Pt needs glasses but does not have them Respiratory History: Reports: Other (See Below) Other Respiratory History: Thoracentesis Gastrointestinal History: Reports: Cirrhosis, Jaundice Genitourinary History: Reports: UTI, Recurrent [employer] History: Reports: , Therapeutic Psychiatric History: Reports: Addiction, Anxiety, Depression, Other (See Below) Other Psychiatric History: drug (meth) induced psychosis Endocrine/Metabolic History: Reports: Diabetes, Type II - Past Surgical History GI Surgical History: Reports: Cholecystectomy, Other (See Below) Musculoskeletal Surgical History: Reports: ORIF, Other (See Below) Social & Family History - Family History Family Medical History: No Pertinent Family History Endocrine/Metabolic: Reports: Diabetes, type II - Caffeine Use Caffeine Use: Reports: Coffee, Energy Drinks, Soda, Tea - Living Situation & Occupation Living situation: Reports: Single, Other Occupation: Unemployed ED ROS GENERAL - Review of Systems Review Of Systems: See Below Constitutional: Reports: No Symptoms. Denies: Fever, Chills HEENT: Reports: Rhinitis. Denies: Ear Pain Respiratory: Reports: No Symptoms Cardiovascular: Reports: No Symptoms Endocrine: Reports: No Symptoms GI/Abdominal: Reports: Abdominal Pain (Midepigastric and left upper abdominal discomfort). Denies: No Symptoms : Reports: No Symptoms Musculoskeletal: Reports: No Symptoms Skin: Reports: No Symptoms ED EXAM, GENERAL - Physical Exam Exam: See Below Exam Limited By: Intoxication (She is cooperative at this time) General Appearance: Alert Throat/Mouth: Normal Inspection, Normal Lips, Normal Gums, Normal Oropharynx, Normal Voice, No Airway Compromise, Other (No blood seen in the mouth or posterior pharynx). No: Normal Teeth Neck: Normal Inspection, Supple, Non-Tender, Full Range of Motion. No: Lymphadenopathy (L), Lymphadenopathy (R) Respiratory/Chest: No Respiratory Distress, Lungs Clear, Normal Breath Sounds Cardiovascular: Regular Rate, Rhythm, No Edema, No Murmur GI/Abdominal: Normal Bowel Sounds, Soft, Tender (Mild epigastric discomfort). No: Guarding, Rigid, Rebound Course - Vital Signs Last Recorded V/S: Last Vital Signs Temp 36.1 C 09/24/20 22:09 Pulse 115 H 09/24/20 22:09 Resp 20 09/24/20 22:09 BP 126/106 H 04/30/21 22:09 Pulse Ox 95 09/24/20 22:09 - Orders/Labs/Meds Labs: Laboratory Tests 09/24/20 09/24/20 09/24/20 Range/Units 22:06 22:06 22:06 WBC 16.86 H (3.98-10.04) K/mm3 RBC 3.58 L (3.98-5.22) M/mm3 Hgb 13.9 D (11.2-15.7) gm/dl Hct 42.1 (34.1-44.9) % MCV 117.6 H D (79.4-94.8) fl MCH 38.8 H (25.6-32.2) pg MCHC 33.0 (32.2-35.5) g/dl RDW Std Deviation 65.4 H (36.4-46.3) fL Plt Count 323 D (182-369) K/mm3 MPV 8.9 L (9.4-12.3) fl Neut % (Auto) 70.5 (34.0-71.1) % Lymph % (Auto) 20.4 (19.3-51.7) % [place] % (Auto) 6.4 (4.7-12.5) % Eos % (Auto) 2.0 (0.7-5.8) Baso % (Auto) 0.5 (0.1-1.2) % Neut # (Auto) 11.87 H (1.56-6.13) K/mm3 Lymph # (Auto) 3.44 (1.18-3.74) K/mm3 [place] # (Auto) 1.08 H (0.24-0.36) K/mm3 Eos # (Auto) 0.34 (0.04-0.36) K/mm3 Baso # (Auto) 0.09 H (0.01-0.08) K/mm3 Manual Slide Review Abnormal smear PT 10.6 (9.7-12.0) SECONDS INR 0.99 APTT 26.2 (21.7-31.4) SECONDS Sodium 141 (136-145) mEq/L Potassium 3.7 (3.5-5.1) mEq/L Chloride 102 (98-107) mEq/L Carbon Dioxide 26 (21-32) mEq/L Anion Gap 16.7 H (5-15) BUN 9 (7-18) mg/dL Creatinine 0.8 (0.55-1.02) mg/dL Est Cr Clr Drug Dosing 76.89 mL/min Estimated GFR (MDRD) > 60 (>60) mL/min BUN/Creatinine Ratio 11.3 L (14-18) Glucose 115 H (74-106) mg/dL Calcium 9.0 (8.5-10.1) mg/dL Total Bilirubin 0.4 (0.2-1.0) mg/dL GGT 644 H (5-55) U/L AST 269 H (15-37) U/L ALT 125 H (14-59) U/L Alkaline Phosphatase 288 H (46-116) U/L Total Protein 8.7 H (6.4-8.2) g/dl Albumin 3.7 (3.4-5.0) g/dl Globulin 5.0 gm/dL Albumin/Globulin Ratio 0.7 L (1-2) Ethyl Alcohol 0.29 (0.00) gm% Meds: Medications Discontinued Medications Generic Name Dose Route Start Last Admin Trade Name Freq PRN Reason Stop Dose Admin Al Hydroxide/Mg Hydroxide 30 0 ml 09/24/20 22:24 09/24/20 23:02 ml/ Lidocaine HCl 15 ml PO 09/24/20 22:25 45 ml ONETIME ONE Administration - Re-Assessments/Exams Free Text/Narrative Re-Assessment/Exam: 09/24/20 22:40 Almost sounds like she is having some microaspiration. We will try GI cocktail. 09/24/20 23:46 Patient had good relief from the GI cocktail. We will give her a dose of Carafate give her a prescription for Carafate. Departure - Departure Time of Disposition: 23:47 Disposition: Home, Self-Care 01 Clinical Impression: Gastritis - Discharge Information Referrals: PCP,None [Primary Care Provider] - Forms: ED Department Discharge Additional Instructions: Return to the emergency room with any questions problems or worsening symptoms. You have been started on Carafate take this 4 times daily right before your morning midday and evening meals and again at bedtime. Take your other medications at least 1 hour before using the Carafate or 2 hours after. It is essential you quit drinking alcohol. Get back to AA. Your liver is in trouble. Follow-up with your regular healthcare provider this next week if you do not have one go to the hospital clinic their phone number is [phone]. Sepsis Event Note (ED) - Focused Exam Vital Signs: Vital Signs Temp Pulse Resp BP Pulse Ox 09/24/20 22:09 36.1 C 115 H 20 126/106 H 95
[2020-09-24 22:14] VITALS: BP 126/106; PULSE 115
[2020-09-24] MEDS ORDERED: Alum Hydrox/Mag Hydrox/Simeth 30 ML, Lidocaine 2% 15 ML PO ONE ×2 (22:24)
[2020-09-24] MEDS ORDERED: Sucralfate Suspension 1 GM/10 ML Cup PO ONE (23:46)
== END 2020-09-25 00:05 | disposition home or self-care (01) ==
LOC: JD.ED 21:53
DX: K29.70 Gastritis, unspecified, without bleeding (principal); E11.9 Type 2 diabetes mellitus without complications; Z90.49 Acquired absence of other specified parts of digestive tract; Z79.899 Other long term (current) drug therapy
CPT/HCPCS: 36415; 80053; 80307; 82977; 85025; 85610; 85730; 99283; A9270

== ENCOUNTER 2020-10-04 11:31 | Emergency (ER) | payer MEDICAID ==
[2020-10-04 12:07] VITALS: BP 140/109; PULSE 119
[2020-10-04] MEDS ORDERED: Sodium Chloride 0.9% 10 ML Syringe FLUSH PRN (12:23)
[2020-10-04] MEDS ORDERED: Sodium Chloride 0.9% 1,000 ML IV SCH (12:30)
[2020-10-04 13:30] LABS: ACETAMINOPHEN 0 ug/mL (10-30)
--- NOTE | 2020-10-04 13:55 | EDM.PDOCBH ---
ED HPI GENERAL MEDICAL PROBLEM - General Chief Complaint: Drug or Alcohol Abuse Stated Complaint: DETOX/MED CLEAR FOR [facility] Time Seen by Provider: 10/04/20 11:44 Source of Information: Reports: Patient History Limitations: Reports: Intoxication - History of Present Illness INITIAL COMMENTS - FREE TEXT/NARRATIVE: The patient presents with alcohol intoxication and she is looking for help to stop drinking. She is addicted to alcohol and has been to treatment before. She drank about 15 minutes before arrival. She drinks Vodka. She usually splits a bottle a day with her boyfriend. She denies taking any other drugs. She has no fever, chills, cough, chest pain, shortness of breath, abdominal pain, nausea or vomiting. Onset: Gradual Duration: Week(s): Severity: Moderate Improves with: Reports: None Worsens with: Reports: None Associated Symptoms: Reports: No Other Symptoms - Related Data Allergies Allergy/AdvReac Type Severity Reaction Status Date / Time No Known Allergies Allergy Verified 10/04/20 12:07 Home Meds: Home Meds LORazepam [Ativan] 1 mg PO DAILY #18 tablet 10/04/20 [Rx] Ondansetron [Zofran ODT] 4 mg PO Q6H PRN #20 tab.dis 10/04/20 [Rx] Sucralfate [Carafate] 1 gm PO QID 10/04/20 [History] Past Medical History - Past Health History Medical/Surgical History: Denies Medical/Surgical History HEENT History: Reports: Other (See Below) Other HEENT History: Pt needs glasses but does not have them Respiratory History: Reports: Other (See Below) Other Respiratory History: Thoracentesis Gastrointestinal History: Reports: Cirrhosis, Jaundice Genitourinary History: Reports: UTI, Recurrent LINE SUPPLY History: Reports: , Therapeutic Psychiatric History: Reports: Addiction, Anxiety, Depression, Other (See Below) Other Psychiatric History: drug (meth) induced psychosis Endocrine/Metabolic History: Reports: Diabetes, Type II - Infectious Disease History Infectious Disease History: Reports: Novel Coronavirus Other Infectious Disease History: may 2020 - Past Surgical History GI Surgical History: Reports: Cholecystectomy, Other (See Below) Other GI Surgeries/Procedures: Paracentesis Female Surgical History: Reports: D&C Musculoskeletal Surgical History: Reports: ORIF, Other (See Below) Other Musculoskeletal Surgeries/Procedures:: Right Ankle Social & Family History - Family History Family Medical History: No Pertinent Family History Endocrine/Metabolic: Reports: Diabetes, type II - Tobacco Use Tobacco Use Status *Q: Current Every Day Tobacco User Years of Tobacco use: 20 Packs/Tins Daily: 1 - Caffeine Use Caffeine Use: Reports: None - Alcohol Use Date of Last Drink: 10/04/20 - Recreational Drug Use Recreational Drug Use: Yes Drug Use in Last 12 Months: Yes Recreational Drug Type: Reports: Marijuana/Hashish, Methamphetamine - Living Situation & Occupation Living situation: Reports: Single, Other Occupation: Unemployed ED ROS GENERAL - Review of Systems Review Of Systems: See Below Constitutional: Reports: No Symptoms HEENT: Reports: No Symptoms Respiratory: Reports: No Symptoms Cardiovascular: Reports: No Symptoms Endocrine: Reports: No Symptoms GI/Abdominal: Reports: No Symptoms : Reports: No Symptoms Musculoskeletal: Reports: No Symptoms ED EXAM, BEHAVIORAL HEALTH - Physical Exam Exam: See Below Exam Limited By: No Limitations General Appearance: Alert, No Apparent Distress Ears: Normal External Exam Nose: Normal Inspection Head: Atraumatic, Normocephalic Neck: Normal Inspection Respiratory/Chest: No Respiratory Distress, Lungs Clear, Normal Breath Sounds Cardiovascular: Regular Rate, Rhythm, No Edema, No Murmur GI/Abdominal: Soft, Non-Tender, No Organomegaly, No Mass Back Exam: Normal Inspection Extremities: Normal Inspection COURSE, BEHAVIORAL HEALTH COMP - Course Vital Signs: Last Vital Signs Temp 97.6 F 10/04/20 12:04 Pulse 119 H 10/04/20 12:04 Resp 16 10/04/20 12:04 BP 140/109 H 10/04/20 12:04 Pulse Ox 93 L 10/04/20 12:04 Orders, Labs, Meds: Laboratory Tests 10/04/20 10/04/20 10/04/20 Range/Units 12:45 12:45 12:45 WBC 10.28 H (3.98-10.04) K/mm3 RBC 3.63 L (3.98-5.22) M/mm3 Hgb 14.2 (11.2-15.7) gm/dl Hct 43.2 (34.1-44.9) % MCV 119.0 H (79.4-94.8) fl MCH 39.1 H (25.6-32.2) pg MCHC 32.9 (32.2-35.5) g/dl RDW Std Deviation 66.4 H (36.4-46.3) fL Plt Count 276 (182-369) K/mm3 MPV 8.6 L (9.4-12.3) fl Neut % (Auto) 67.4 (34.0-71.1) % Lymph % (Auto) 22.0 (19.3-51.7) % Coffee % (Auto) 7.7 (4.7-12.5) % Eos % (Auto) 2.1 (0.7-5.8) Baso % (Auto) 0.6 (0.1-1.2) % Neut # (Auto) 6.93 H (1.56-6.13) K/mm3 Lymph # (Auto) 2.26 (1.18-3.74) K/mm3 Coffee # (Auto) 0.79 H (0.24-0.36) K/mm3 Eos # (Auto) 0.22 (0.04-0.36) K/mm3 Baso # (Auto) 0.06 (0.01-0.08) K/mm3 Manual Slide Review Abnormal smear Sodium 139 (136-145) mEq/L Potassium 3.4 L (3.5-5.1) mEq/L Chloride 100 (98-107) mEq/L Carbon Dioxide 29 (21-32) mEq/L Anion Gap 13.4 (5-15) BUN 4 L (7-18) mg/dL Creatinine 0.8 (0.55-1.02) mg/dL Est Cr Clr Drug Dosing 76.89 mL/min Estimated GFR (MDRD) > 60 (>60) mL/min BUN/Creatinine Ratio 5.0 L (14-18) Glucose 97 (74-106) mg/dL Calcium 8.4 L (8.5-10.1) mg/dL Magnesium 2.2 (1.8-2.4) mg/dl Total Bilirubin 0.7 (0.2-1.0) mg/dL AST 252 H (15-37) U/L ALT 118 H (14-59) U/L Alkaline Phosphatase 273 H (46-116) U/L Total Protein 8.8 H (6.4-8.2) g/dl Albumin 3.6 (3.4-5.0) g/dl Globulin 5.2 gm/dL Albumin/Globulin Ratio 0.7 L (1-2) Lipase 122 (73-393) U/L TSH 3rd Generation 0.569 (0.358-3.74) uIU/mL HCG, Qual Negative (NEGATIVE) Salicylates (2.8-20) mg/dL Urine Opiates Screen (USFAZG=990) Ur Buprenorphine Scrn (CUTOFF=10) Ur Oxycodone Screen (TMY0MY=117) Urine Methadone Screen (SZMABU=118) Ur Propoxyphene Screen (ENCIJV=155) Acetaminophen 0 L (10-30) ug/mL Ur Barbiturates Screen (CYJBGI=032) Ur Tricyclics Screen (LXVGIN=299) Ur Phencyclidine Scrn (CUTOFF=25) Ur Amphetamine Screen (YPQMJC=590) U Methamphetamines Scrn (KXLXRA=910) U Benzodiazepines Scrn (XKELEC=773) U Cocaine Metab Screen (MUHECE=133) U Marijuana (THC) Screen (CUTOFF=50) Ethyl Alcohol 0.20 (0.00) gm% 10/04/20 10/04/20 Range/Units 12:45 13:12 WBC (3.98-10.04) K/mm3 RBC (3.98-5.22) M/mm3 Hgb (11.2-15.7) gm/dl Hct (34.1-44.9) % MCV (79.4-94.8) fl MCH (25.6-32.2) pg MCHC (32.2-35.5) g/dl RDW Std Deviation (36.4-46.3) fL Plt Count (182-369) K/mm3 MPV (9.4-12.3) fl Neut % (Auto) (34.0-71.1) % Lymph % (Auto) (19.3-51.7) % Coffee % (Auto) (4.7-12.5) % Eos % (Auto) (0.7-5.8) Baso % (Auto) (0.1-1.2) % Neut # (Auto) (1.56-6.13) K/mm3 Lymph # (Auto) (1.18-3.74) K/mm3 Coffee # (Auto) (0.24-0.36) K/mm3 Eos # (Auto) (0.04-0.36) K/mm3 Baso # (Auto) (0.01-0.08) K/mm3 Manual Slide Review Sodium (136-145) mEq/L Potassium (3.5-5.1) mEq/L Chloride (98-107) mEq/L Carbon Dioxide (21-32) mEq/L Anion Gap (5-15) BUN (7-18) mg/dL Creatinine (0.55-1.02) mg/dL Est Cr Clr Drug Dosing mL/min Estimated GFR (MDRD) (>60) mL/min BUN/Creatinine Ratio (14-18) Glucose (74-106) mg/dL Calcium (8.5-10.1) mg/dL Magnesium (1.8-2.4) mg/dl Total Bilirubin (0.2-1.0) mg/dL AST (15-37) U/L ALT (14-59) U/L Alkaline Phosphatase (46-116) U/L Total Protein (6.4-8.2) g/dl Albumin (3.4-5.0) g/dl Globulin gm/dL Albumin/Globulin Ratio (1-2) Lipase (73-393) U/L TSH 3rd Generation (0.358-3.74) uIU/mL HCG, Qual (NEGATIVE) Salicylates 0.3 L (2.8-20) mg/dL Urine Opiates Screen Negative (CECZMZ=863) Ur Buprenorphine Scrn Negative (CUTOFF=10) Ur Oxycodone Screen Negative (LYL0SC=827) Urine Methadone Screen Negative (MULFAR=183) Ur Propoxyphene Screen Negative (IEHKWA=538) Acetaminophen (10-30) ug/mL Ur Barbiturates Screen Negative (PHMFKE=445) Ur Tricyclics Screen Negative (PQMTDM=896) Ur Phencyclidine Scrn Negative (CUTOFF=25) Ur Amphetamine Screen Negative (HGPBEJ=665) U Methamphetamines Scrn Negative (OSZGCE=771) U Benzodiazepines Scrn Negative (YLUCGW=481) U Cocaine Metab Screen Negative (HDWZPW=455) U Marijuana (THC) Screen Negative (CUTOFF=50) Ethyl Alcohol (0.00) gm% Medications Discontinued Medications Generic Name Dose Route Start Last Admin Trade Name Freq PRN Reason Stop Dose Admin Sodium Chloride 1,000 mls @ 1,000 mls/hr 10/04/20 12:30 Normal Saline IV .BOLUS BALDO Sodium Chloride 10 ml 10/04/20 12:23 Sodium Chloride 0.9% 10 Ml Syringe FLUSH ASDIRECTED PRN Keep Vein Open Re-Assessment/Re-Exam: I ordered an IV NS 1L bolus and labs. The patient was leaving her room and going to her boyfriend's room. He is also here looking for help. She also was not listening to staff. I did not want her pulling out her IV so I canceled it. Her WBC was a little elevated at 10.28. Her K was 3.4. Her AST was elevated at 252. Her ALT was elevated at 118. Her alk phos is elevated at 273. Her lipase is normal. Her TSH is normal. Her HCG is negative. Her UDS is negative. Her blood alcohol is elevated at 0.20. [facility] has been contacted. They will come see them soon for possible [facility] admission. I was just informed the patient left. [facility] was here and they interviewed the patient and her fiance and they could not take both of them. She got upset and just left. Departure - Departure Time of Disposition: 14:30 Disposition: Home, Self-Care 01 Condition: Good Clinical Impression: Alcohol abuse, Elevated liver enzymes Alcohol intoxication Qualifiers: Complication of substance-induced condition: uncomplicated Qualified Code(s): F10.920 - Alcohol use, unspecified with intoxication, uncomplicated - Discharge Information *PRESCRIPTION DRUG MONITORING PROGRAM REVIEWED*: Not Applicable *COPY OF PRESCRIPTION DRUG MONITORING REPORT IN PATIENT SHELDON: Not Applicable Prescriptions: LORazepam [Ativan] 1 mg PO DAILY #18 tablet Ondansetron [Zofran ODT] 4 mg PO Q6H PRN #20 tab.dis PRN Reason: Nausea\vomiting Referrals: PCP,None [Primary Care Provider] - Madai Jalloh BREAKER OILER [Nurse Practitioner] - 1 Week Forms: ED Department Discharge Additional Instructions: Drink plenty of water, powerade or gatorade. Take the ativan 1mg 3 times per day for 3 days, then 2 times per day for 3 days and then at night for 3 days. Take the zofran every 6 hours. Follow up with [facility]. Their phone number is . Please return if you are worse. Sepsis Event Note (ED) - Evaluation Sepsis Screening Result: No Definite Risk - Focused Exam Vital Signs: Vital Signs Temp Pulse Resp BP Pulse Ox 10/04/20 12:04 97.6 F 119 H 16 140/109 H 93 L
== END 2020-10-04 14:50 | disposition home or self-care (01) ==
LOC: JD.ED 11:31
DX: F10.120 Alcohol abuse with intoxication, uncomplicated (principal); R74.8 Abnormal levels of other serum enzymes; E11.9 Type 2 diabetes mellitus without complications; Z86.16 Personal history of COVID-19; Y90.0 Blood alcohol level of less than 20 mg/100 ml; Z72.0 Tobacco use; Z79.899 Other long term (current) drug therapy
CPT/HCPCS: 36415; 80053; 80143; 80179; 80306; 80307; 83690; 83735; 84443; 84703; 85025; 99283; 99284

== ENCOUNTER 2020-10-05 13:45 | Emergency (ER) | payer MEDICAID ==
[2020-10-05 14:11] VITALS: BP 117/76; PULSE 107
[2020-10-05] MEDS ORDERED: LORazepam 2 MG/ML SDV IM ONE (14:25)
--- NOTE | 2020-10-05 14:33 | EDM.PDOC ---
ED HPI GENERAL MEDICAL PROBLEM - General Chief Complaint: Drug or Alcohol Abuse Stated Complaint: MEDICAL CLEARANCE Time Seen by Provider: 10/05/20 14:04 Source of Information: Reports: Patient, RN Notes Reviewed History Limitations: Reports: No Limitations, Uncooperative - History of Present Illness INITIAL COMMENTS - FREE TEXT/NARRATIVE: Patient is a 34-year-old female who presents to the ER with [facility] staff for her alcohol abuse. Patient was seen in this ER yesterday, and was wanting help to stop drinking alcohol, patient notes that she became anxious however and did not feel like much was being done for her, so she left the ER. She did have labs taken yesterday, which did demonstrate some mildly elevated liver enzymes, but the patient did have a blood alcohol level of 0.2, which would suggest that they are elevated because she was drinking at that time. The patient is brought here for medical clearance for detox purposes at [facility]. Patient states that she likes to drink vodka, and her last drink was around 8 AM this morning, she notes that she drank about 4 ounces of vodka. She states that she would like to get sober, because she knows she is hurting her liver, and also for her son. She states she does feel anxious, her heart is beating very fast, she is shaky, sweaty, and feels hot. Does have a history of anxiety but has not been on any meds for this. She has no regular care provider. Staff at [facility] was also slightly concerned as her blood pressure was a little elevated, the patient's blood pressure at initial time of triage was 117/76, and subsequent blood pressure was 122/58. She is denying any fevers or chills, cough or shortness of breath, or any started nausea/vomiting/diarrhea. Generalized Pain Score (Numeric/FACES): 8 - Related Data Allergies Allergy/AdvReac Type Severity Reaction Status Date / Time No Known Allergies Allergy Verified 10/05/20 14:11 Home Meds: Home Meds LORazepam [Ativan] 1 mg PO ASDIRECTED #20 tab 10/05/20 [Rx] Ondansetron [Zofran ODT] 4 mg PO TID #15 tab.dis 10/05/20 [Rx] Past Medical History HEENT History: Reports: Impaired Vision Other HEENT History: Pt needs glasses but does not have them Respiratory History: Reports: Other (See Below) Other Respiratory History: Thoracentesis Gastrointestinal History: Reports: Cirrhosis, Jaundice Genitourinary History: Reports: UTI, Recurrent TOE TRIMMER History: Reports: , Therapeutic Psychiatric History: Reports: Addiction, Anxiety, Depression, Other (See Below) Other Psychiatric History: drug (meth) induced psychosis Endocrine/Metabolic History: Reports: Diabetes, Type II, Obesity/BMI 30+ - Infectious Disease History Infectious Disease History: Reports: Novel Coronavirus Other Infectious Disease History: may 2020 - Past Surgical History GI Surgical History: Reports: Cholecystectomy, Other (See Below) Other GI Surgeries/Procedures: Paracentesis Female Surgical History: Reports: D&C Musculoskeletal Surgical History: Reports: ORIF, Other (See Below) Other Musculoskeletal Surgeries/Procedures:: Right Ankle Social & Family History - Family History Family Medical History: No Pertinent Family History Endocrine/Metabolic: Reports: Diabetes, type II - Tobacco Use Tobacco Use Status *Q: Current Every Day Tobacco User Years of Tobacco use: 20 Packs/Tins Daily: 1 - Caffeine Use Caffeine Use: Reports: Coffee, Soda, Tea - Alcohol Use Days Per Week of Alcohol Use: 7 Number of Drinks Per Day: 5 Total Drinks Per Week: 35 Date of Last Drink: 10/05/20 Time of Last Drink: 08:00 - Recreational Drug Use Recreational Drug Use: Yes Drug Use in Last 12 Months: Yes Recreational Drug Type: Reports: Methamphetamine Recreational Drug Use Frequency: Rarely - Living Situation & Occupation Living situation: Reports: Single, Other Occupation: Unemployed ED ROS GENERAL - Review of Systems Review Of Systems: Comprehensive ROS is negative, except as noted in HPI. ED EXAM, GENERAL - Physical Exam Exam: See Below Exam Limited By: No Limitations General Appearance: Alert, WD/WN, No Apparent Distress, Anxious (generalized) Eye Exam: Bilateral Eye: Normal Inspection Throat/Mouth: Normal Inspection, Normal Lips, Normal Teeth, Normal Gums, Normal Oropharynx, Normal Voice, No Airway Compromise Head: Atraumatic, Normocephalic Respiratory/Chest: No Respiratory Distress, Lungs Clear, Normal Breath Sounds, No Accessory Muscle Use, Chest Non-Tender Cardiovascular: Normal Peripheral Pulses, Regular Rate, Rhythm, No Edema Peripheral Pulses: 2+: Radial (L), Radial (R) Extremities: Normal Inspection, Normal Capillary Refill Neurological: Alert, Oriented, Normal Cognition, No Motor/Sensory Deficits Psychiatric: Normal Affect, Normal Mood, Anxious (slight generalized) Skin Exam: Warm, Dry, Intact, Normal Color, No Rash Course - Vital Signs Last Recorded V/S: Last Vital Signs Temp 98.6 F 10/05/20 14:08 Pulse 107 H 10/05/20 14:08 Resp 14 10/05/20 14:08 BP 117/76 10/05/20 14:08 Pulse Ox 93 L 10/05/20 14:08 - Orders/Labs/Meds Meds: Medications Discontinued Medications Generic Name Dose Route Start Last Admin Trade Name Darron PRN Reason Stop Dose Admin Lorazepam 1 mg 10/05/20 14:25 10/05/20 14:55 Lorazepam 2 Mg/Ml Sdv IM 10/05/20 14:26 1 mg ONETIME ONE Administration - Re-Assessments/Exams Free Text/Narrative Re-Assessment/Exam: 10/05/20 14:31 Patient presents to the ER with [facility] staff for her alcohol abuse and anxiety. I will go ahead and give the patient a 1 mg injection of Ativan for initial management as she is quite anxious. Blood pressure has been okay, we will continue to monitor this a few rounds to determine whether the patient needs blood pressure medications for [facility] staff. I do believe that her elevated blood pressure was due to anxiety. Patient did just have labs yesterday, and again it did demonstrate a CBC that was essentially normal, liver enzymes were elevated AST at 252, ALT at 118, ALP of 273, which is pretty much in line with acute alcohol intoxication. She is having no right upper quadrant tenderness, that would make me think that there is any sort of acute hepatitis going on at this time, I do believe she would be fit to go to [facility] for further alcohol detox, and report to the ER if her symptoms seem to change or worsen. 10/05/20 15:40 Patient is feeling better, and [facility] is okay with taking her for alcohol detox at this time. Departure - Departure Time of Disposition: 14:33 Disposition: DC/Tfer to Other 70 Condition: Good Clinical Impression: Alcohol abuse, Elevated liver enzymes Alcohol withdrawal syndrome Qualifiers: Complication of substance-induced condition: uncomplicated Qualified Code(s): F10.230 - Alcohol dependence with withdrawal, uncomplicated - Discharge Information *PRESCRIPTION DRUG MONITORING PROGRAM REVIEWED*: No *COPY OF PRESCRIPTION DRUG MONITORING REPORT IN PATIENT SHELDON: No Instructions: Alcohol Abuse and Nutrition, Alcohol Withdrawal Syndrome, [id number] Referrals: PCP,None [Primary Care Provider] - Forms: ED Department Discharge Additional Instructions: You were evaluated in the ER today for your alcohol abuse. No laboratory evaluation was repeated at today's visit, laboratory evaluation from yesterday does demonstrate elevated liver enzymes, but this is most likely due to your acute ingestion of alcohol yesterday. These liver enzymes will likely return to normal limits, as you stay away from alcohol, and return to general health. You have been given a prescription for Ativan, dosing will be 1 tablet 3 times a day for 3 days, 1 tablet 2 times a day for 4 days, then 1 tablet 3 times a day for 3 days. You were given a prescription for Zofran, you will need to take 1 tablet dissolvable under your tongue TID, until the prescription is gone. Please return to the ER at any time if symptoms should change or worsen. Sepsis Event Note (ED) - Evaluation Sepsis Screening Result: No Definite Risk - Focused Exam Vital Signs: Vital Signs Temp Pulse Resp BP Pulse Ox 10/05/20 14:08 98.6 F 107 H 14 117/76 93 L
== END 2020-10-05 15:53 | disposition other institution (70) ==
LOC: JD.ED 13:45
DX: F10.230 Alcohol dependence with withdrawal, uncomplicated (principal); R74.8 Abnormal levels of other serum enzymes; E11.9 Type 2 diabetes mellitus without complications; E66.9 Obesity, unspecified; Z72.0 Tobacco use; Z68.45 Body mass index [BMI] 70 or greater, adult
CPT/HCPCS: 96372; 99284; J2060

== ENCOUNTER 2021-09-19 13:31 | Emergency (ER) | payer MEDICAID ==
[2021-09-19 14:16] VITALS: BP 141/100; PULSE 94
[2021-09-19] MEDS ORDERED: Ondansetron 4 MG Tab.DIS PO ONE (15:18)
[2021-09-19 15:25] LABS: ACETAMINOPHEN 0 ug/mL (10-30)
== END 2021-09-19 18:20 | disposition other institution (70) ==
LOC: JD.ED 13:31
DX: F10.129 Alcohol abuse with intoxication, unspecified (principal); E11.9 Type 2 diabetes mellitus without complications; E66.9 Obesity, unspecified; Z68.41 Body mass index [BMI] 40.0-44.9, adult; Y90.1 Blood alcohol level of 20-39 mg/100 ml
CPT/HCPCS: 36415; 80053; 80143; 80179; 80306; 80307; 84443; 84702; 85025; 93005; 99285; A9270

== ENCOUNTER 2022-07-31 06:57 | Inpatient (IN) | payer MEDICAID ==
[2022-07-31] MEDS ORDERED: Ondansetron 4 MG/2 ML SDV IVPUSH PRN (07:45)
[2022-07-31] MEDS ORDERED: Nalbuphine 10 MG/0.5 ML Syringe IVPUSH PRN (07:45)
[2022-07-31] MEDS ORDERED: Oxytocin/Lactated Ringers 10 UNIT/1,000 ML BAG IV SCH (07:45)
[2022-07-31] MEDS ORDERED: Calcium Carbonate 500 MG Tab.Chew PO PRN (07:45)
[2022-07-31] MEDS: Lactated Ringers 1,000 ML IV SCH ×3 (08:58→14:52)
[2022-07-31] MEDS: Oxytocin/Lactated Ringers 10 UNIT/1,000 ML BAG IV SCH ×2 (09:01→20:57)
[2022-07-31] MEDS ORDERED: fentaNYL 100 MCG/2 ML SDV EPIDUR PRN (12:46)
[2022-07-31] MEDS ORDERED: ePHEDrine 50 MG/ML SDV IVPUSH PRN (12:46)
[2022-07-31] MEDS ORDERED: diphenhydrAMINE 50 MG/ML SDV IVPUSH PRN (12:46)
[2022-07-31] MEDS: Bupivacaine/fentaNYL/NS 100 ML Bag EPIDUR PRN ×2 (12:56→20:57)
[2022-07-31] MEDS ORDERED: Bupivacaine 0.25% 10 ML SDV ONE (18:00)
[2022-07-31] MEDS ORDERED: Lidocaine 1% 20 ML MDV INJECT ONE (23:39)
[2022-07-31] MEDS ORDERED: Oxytocin 10 Units/1 ML SDV IM ONE (23:39)
[2022-07-31] MEDS ORDERED: Oxytocin 10 Units/1 ML SDV ONE (23:39)
[2022-07-31] MEDS ORDERED: Lidocaine 1% 50 ML MDV ONE (23:41)
[2022-08-01] MEDS: Lactated Ringers 1,000 ML IV SCH (00:49)
[2022-08-01] MEDS ORDERED: Docusate Sodium 100 MG Cap PO PRN (03:23)
[2022-08-01] MEDS ORDERED: Benzocaine/Menthol 20%-0.5% Spray 78 GM Cannister TOP PRN (03:23)
[2022-08-01] MEDS ORDERED: Acetaminophen 325 MG Tab PO PRN (03:23)
[2022-08-01] MEDS ORDERED: Witch Hazel Medicated Pads 40/Jar TOP PRN (03:23)
[2022-08-01] MEDS: Ibuprofen 600 MG Tab PO PRN ×2 (08:17→20:15)
[2022-08-01] MEDS ORDERED: Prenatal Multivitamin with Calcium/Folic Acid/Iron Tab PO SCH (09:00)
[2022-08-02 02:47] VITALS: BP 119/61; PULSE 97
== END 2022-08-02 09:30 | disposition home or self-care (01) | DRG 806 ==
LOC: JD.OBCHECK 06:57 → JD.OB 07:00 → JD.OBCHECK 07:45 → JD.OB 07:45 → OBSVTOIN 23:30 → JD.OB 23:31
PROVIDERS: ADMIT Family Medicine; ATTEND Family Medicine
PROC: 10E0XZZ Delivery of Products of Conception, External Approach (ICD-10-PCS; principal; 2022-07-31)
PROC: 0KQM0ZZ Repair Perineum Muscle, Open Approach (ICD-10-PCS; 2022-07-31)
PROC: 3E0R3BZ Introduction of Anesthetic Agent into Spinal Canal, Percutaneous Approach (ICD-10-PCS; 2022-07-31)
PROC: 00HU33Z Insertion of Infusion Device into Spinal Canal, Percutaneous Approach (ICD-10-PCS; 2022-07-31)
PROC: 3E033VJ Introduction of Other Hormone into Peripheral Vein, Percutaneous Approach (ICD-10-PCS; 2022-07-31)
DX: O99.344 Other mental disorders complicating childbirth (principal); O72.1 Other immediate postpartum hemorrhage; Z37.0 Single live birth; O99.214 Obesity complicating childbirth; Z3A.39 39 weeks gestation of pregnancy; F41.9 Anxiety disorder, unspecified; F32.A Depression, unspecified; O70.1 Second degree perineal laceration during delivery; O99.334 Smoking (tobacco) complicating childbirth; F17.210 Nicotine dependence, cigarettes, uncomplicated; F17.290 Nicotine dependence, other tobacco product, uncomplicated; Z86.16 Personal history of COVID-19
CPT/HCPCS: 01967; 36415; 51702; 59025; 59409; 80053; 80306; 85025; 85027; 86592; 86850; 86900; 86901; A9270-GY; J1200; J2001; J2300; J2590; J3010; J3490; J7120